=== PATIENT | male | born 1955 | race Caucasian/White ===

== ENCOUNTER 2018-02-25 07:02 | Emergency (ER) | payer SELFPAY ==
[~2018-02-25] VITALS: Ht 170.2 cm; Wt 71.9 kg
[~2018-02-25 07:02] MED LIST: CITA20TA6 PO
[2018-02-25] MEDS ORDERED: FAMOTIDINE 20 MG/2 ML VIAL ONE (07:29)
[2018-02-25] MEDS ORDERED: THIAMINE 200 MG/2 ML VIAL. IV ONE (07:36)
[2018-02-25] MEDS ORDERED: FOLIC ACID 5 MG/ML SYRINGE for ER IV ONE (07:36)
[2018-02-25] MEDS ORDERED: MVI, ADULT NO.4 WITH VIT K 10 ML VIAL IV ONE (07:36)
[2018-02-25 07:41] LABS: BASO # 0.1 x10^3/uL (0.0-0.2); BASO % 1 % (0-3); EOS # 0.1 x10^3/uL (0.0-0.7); EOS % 0 % (0-3); HEMOGLOBIN 16.2 g/dL (13.0-17.5); LYMPH # 1.3 x10^3/uL (1.0-4.8); LYMPH % 10 % (24-48); MEAN CORPUSCULAR HEMOGLOBIN 30 pg (25-35); MEAN CORPUSCULAR HGB CONC 35 g/dL (31-37); MEAN CORPUSCULAR VOLUME 85 fL (79-100); MONO # 0.9 x10^3/uL (0.0-1.1); MONO % 7 % (0-9); NEUT # 11.3 x10^3uL (1.8-7.7); NEUT % 83 % (31-73); PLATELET COUNT 426 x10^3/uL (140-400); RED BLOOD COUNT 5.39 x10^6/uL (4.30-5.70); WHITE BLOOD COUNT 13.7 x10^3/uL (4.0-11.0)
--- NOTE | 2018-02-25 07:44 | PHYS DOC ---
Past History Past Medical History: Anxiety, Hypertension, Other Past Surgical History: Appendectomy, Other Smoking: Cigarettes, Less than 1pk/day Alcohol Use: Heavy Drug Use: Cocaine, Marijuana Adult General Chief Complaint Chief Complaint: WITHDRAWL HPI HPI Patient is a 62-year-old male who presents with complaint of withdrawal symptoms. Patient states that he has been binge drinking for the last 4-5 days and has also been using cocaine. He states the last use of both was yesterday. Patient also indicates that he is having mid abdominal pain that started 2 days ago and has gotten to the point where he was having nausea and vomiting last night. He rates his pain in his abdomen at an 8 out of 10. He denies any radiation of the pain. He denies chest pain or shortness of breath. Patient indicates that he has never had DTs and no seizure history. Review of Systems Review of Systems Constitutional: Denies fever or chills [] Respiratory: Denies cough or shortness of breath [] Cardiovascular: No additional information not addressed in HPI [] GI: Complains of abdominal pain with nausea and vomiting. Denies diarrhea [] Musculoskeletal: Denies back pain or joint pain [] Integument: Denies rash or skin lesions [] All other systems were reviewed and found to be within normal limits, except as documented in this note. Current Medications Current Medications Current Medications Medications (Trade) Dose Ordered Sig/Darinel Start Time Stop Time Status Last Admin Dose Admin Famotidine (Pepcid Vial) 20 mg 1X ONCE 02/25/18 07:30 02/25/18 07:31 UNV Fentanyl Citrate (Fentanyl 2ml Vial) 25 mcg 1X ONCE 02/25/18 07:30 02/25/18 07:31 UNV Folic Acid (Folic Acid) 1 mg 1X ONCE 02/25/18 08:00 02/25/18 08:01 Lorazepam (Ativan) 1 mg 1X ONCE 02/25/18 07:30 02/25/18 07:31 UNV Multivitamins/ Calcium (Thera-M Plus) 1 tab 1X ONCE 02/25/18 08:00 02/25/18 08:01 Multivitamins/ Minerals 10 ml/ Folic Acid 1 mg/ Thiamine HCl 100 mg/Sodium Chloride 1,011.2 ml @ 1,000 mls/ hr Q1H 02/25/18 07:30 UNV Ondansetron HCl (Zofran) 4 mg 1X ONCE 02/25/18 07:30 02/25/18 07:31 UNV Thiamine HCl (Vitamin B-1) 100 mg 1X ONCE 02/25/18 08:00 02/25/18 08:01 Allergies Allergies Allergies Coded Allergies Type Severity Reaction Last Updated Verified No Known Drug Allergies 10/12/13 No Physical Exam Physical Exam Constitutional: Well developed, well nourished, no acute distress, non-toxic appearance. [] HENT: Normocephalic, atraumatic, bilateral external ears normal, oropharynx moist, no oral exudates, nose normal. [] Eyes: PERRLA, EOMI, conjunctiva normal, no discharge. [] Neck: Normal range of motion, no tenderness, supple, no stridor. [] Cardiovascular: Regular rate and rhythm [] Lungs & Thorax: Bilateral breath sounds clear to auscultation [] Abdomen: Bowel sounds normal, soft, with mid abdominal tenderness. [] Skin: Warm, dry, no erythema, no rash. [] Extremities: No tenderness, no cyanosis, no clubbing, ROM intact. [] Neurologic: Alert and oriented X 3. [] Current Patient Data Vital Signs Vital Signs Date Time Temp Pulse Resp B/P (MAP) Pulse Ox O2 Delivery O2 Flow Rate FiO2 02/25/18 07:29 87 19 94 Room Air EKG EKG EKG demonstrates normal sinus rhythm with rate of 82.[] Radiology/Procedures Radiology/Procedures [] Course & Med Decision Making Course & Med Decision Making Pertinent Labs and Imaging studies reviewed. (See chart for details) [] Dragon Disclaimer Dragon Disclaimer This electronic medical record was generated, in whole or in part, using a voice recognition dictation system. Departure Departure: Impression: Primary Impression: Polysubstance abuse Additional Impressions: Polysubstance dependence Gastritis due to alcohol without hemorrhage Disposition: HOME, SELF-CARE Condition: STABLE Referrals: PCP,NO (PCP) Patient Instructions: Alcoholic Gastritis-Brief, Polysubstance Abuse Scripts Famotidine (PEPCID) 20 Mg Tablet 1 TAB PO BID for gastritis, #30 TAB Prov: RABIA SHELDON Jr. DO 02/25/18 Chlordiazepoxide Hcl (CHLORDIAZEPOXIDE HCL) 10 Mg Capsule 10 MG PO TID PRN for ANXIETY / AGITATION, #15 CAP Prov: RABIA SHELDON Jr. DO 02/25/18 Ondansetron Hcl (ZOFRAN) 4 Mg Tablet 1 TAB PO Q8HRS PRN for NAUSEA, #12 TAB Prov: RABIA SHELDON Jr. DO 02/25/18 Problem Qualifiers Additional Impressions: Gastritis due to alcohol without hemorrhage Chronicity: unspecified Qualified Codes: K29.20 - Alcoholic gastritis without bleeding RABIA SHELDON Jr. DO Feb 25, 2018 07:44
[2018-02-25 07:53] LABS: ALBUMIN 3.9 g/dL (3.4-5.0); CALCIUM 8.9 mg/dL (8.5-10.1); CREATININE 1.1 mg/dL (0.7-1.3); DIRECT BILIRUBIN 0.2 mg/dL (0.0-0.2); GFR 68.3; MAGNESIUM 1.6 mg/dL (1.8-2.4); POTASSIUM 3.5 mmol/L (3.5-5.1); TOTAL BILIRUBIN 0.8 mg/dL (0.2-1.0); TOTAL PROTEIN 7.8 g/dL (6.4-8.2)
[2018-02-25] MEDS ORDERED: ONDANSETRON PF 4 MG/2 ML VIAL. IV ONE (08:00)
[2018-02-25] MEDS ORDERED: FOLIC ACID 1 MG TABLET PO ONE (08:00)
[2018-02-25] MEDS ORDERED: LORazepam 2 MG/ML VIAL IV ONE ×2 (08:00→11:45)
[2018-02-25] MEDS ORDERED: THIAMINE 100 MG TABLET. PO ONE (08:00)
[2018-02-25] MEDS ORDERED: FAMOTIDINE 20 MG/2 ML VIAL IVP ONE (08:00)
[2018-02-25] MEDS ORDERED: MULTIVITAMIN with MINERAL TABLET. PO ONE (08:00)
[2018-02-25] MEDS ORDERED: MVI, ADULT NO.4 WITH VIT K 10 ML, FOLIC ACID SYRINGE for ER 1 MG, THIAMINE INJ 100 MG i... IV SCH ×4 (08:00)
[2018-02-25 08:20] LABS: AMPHETAMINE/METHAMPHETAMINE NEG (NEG); BARBITURATES NEG (NEG); BENZODIAZEPINES NEG (NEG); CANNABINOIDS NEG (NEG); COCAINE POS (NEG); METHADONE NEG (NEG); OPIATES NEG (NEG); PHENCYCLIDINE NEG (NEG)
[2018-02-25 08:42] LABS: BACTERIA,URINE 0 /HPF (0-FEW); BILIRUBIN,URINE NEG (NEG); CLARITY,URINE CLEAR; COLOR,URINE YELLOW; GLUCOSE,URINE NEG (NEG); NITRITE,URINE NEG (NEG); RBC,URINE 0 /HPF (0-2); SQUAMOUS EPITHELIAL CELL,UR OCC /LPF; UROBILINOGEN,URINE 0.2 mg/dL (0.2 mg/dL); WBC,URINE 0 /HPF (0-4)
[2018-02-25] MEDS ORDERED: LIDO:MAALOX 1:1 20 ML SINGLE DOSE. PO ONE (11:15)
[2018-02-25] MEDS ORDERED: ONDA4TAB7 PO (13:40)
[2018-02-25] MEDS ORDERED: FAMO-63 PO (13:40)
[2018-02-25] MEDS ORDERED: CHLO10CA5 PO (13:40)
[2018-02-25 13:43] VITALS: BP 150/81
--- NOTE | 2018-02-26 01:34 | EKG ---
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
== END 2018-02-25 13:45 | disposition home or self-care (01) ==
LOC: ER 07:02
DX: K29.20 Alcoholic gastritis without bleeding (principal); F19.20 Other psychoactive substance dependence, uncomplicated; I10 Essential (primary) hypertension; F17.210 Nicotine dependence, cigarettes, uncomplicated; F10.20 Alcohol dependence, uncomplicated; F12.10 Cannabis abuse, uncomplicated; F14.10 Cocaine abuse, uncomplicated; Z90.89 Acquired absence of other organs; Y90.0 Blood alcohol level of less than 20 mg/100 ml
CPT/HCPCS: 36415; 80048; 80076; 80307; 81001; 83690; 83735; 85025; 93005; 96365; 96375; 96376; 99284; G0480; J2060; J2405; J3010; J3490; J7030

== ENCOUNTER 2018-02-26 16:48 | Emergency (ER) | payer SELFPAY ==
[~2018-02-26] VITALS: Ht 170.2 cm; Wt 71.9 kg
[~2018-02-26 16:48] MED LIST changes: +CHLO10CA5 PO; +FAMO-63 PO; +ONDA4TAB7 PO
--- NOTE | 2018-02-26 17:38 | PHYS DOC ---
Past History Past Medical History: Asthma, Other Past Surgical History: Appendectomy, Other Smoking: Cigarettes, Less than 1pk/day Alcohol Use: Heavy Additional Alcohol Information: ETOH was day before last Drug Use: Cocaine Social History Narrative: Last used Cocaine night before last Adult General Chief Complaint Chief Complaint: WITHDRAWL HPI HPI Patient is a 62-year-old male who presents with complaint of continued abdominal pain with nausea and vomiting and anxiety. Patient was seen here couple of days ago with same complaint and was given prescriptions for Librium and Zofran. Patient admits that he did not fill the prescriptions and states that he had a rough night and thought that he should come back to the emergency room. He rates the pain in his abdomen at an 8 out of 10. He denies any fever, chest pain or shortness of breath. Patient states that symptoms are worsened if he tries to eat or drink anything. Review of Systems Review of Systems Constitutional: Denies fever or chills [] Respiratory: Denies cough or shortness of breath [] Cardiovascular: No additional information not addressed in HPI [] GI: Complains of abdominal pain with nausea and vomiting. Denies diarrhea [] Musculoskeletal: Complains of back pain [] All other systems were reviewed and found to be within normal limits, except as documented in this note. Allergies Allergies Allergies Coded Allergies Type Severity Reaction Last Updated Verified No Known Drug Allergies 10/12/13 No Physical Exam Physical Exam Constitutional: Well developed, well nourished, no acute distress, non-toxic appearance. [] HENT: Normocephalic, atraumatic, bilateral external ears normal, oropharynx moist, no oral exudates, nose normal. [] Eyes: PERRLA, EOMI, conjunctiva normal. [] Neck: Normal range of motion, no tenderness, supple, no stridor. [] Cardiovascular: Mildly tachycardic rate with regular rhythm [] Lungs & Thorax: Bilateral breath sounds clear to auscultation [] Abdomen: Bowel sounds normal, soft, with mild diffuse tenderness. [] Skin: Warm, dry, no erythema, no rash. [] Extremities: No tenderness, no cyanosis, no clubbing, ROM intact, no edema. [] Neurologic: Alert and oriented X 3, normal motor function, normal sensory function, no focal deficits noted. [] Current Patient Data Vital Signs Vital Signs Date Time Temp Pulse Resp B/P (MAP) Pulse Ox O2 Delivery O2 Flow Rate FiO2 02/26/18 16:48 97.7 107 20 95 Room Air EKG EKG [] Radiology/Procedures Radiology/Procedures [] Course & Med Decision Making Course & Med Decision Making Pertinent Labs and Imaging studies reviewed. (See chart for details) Patient moved to room upon arrival was evaluated by your medical staff after which workup was initiated to include blood work and a UA. Patient given IV fluids as well as IV Zofran and Pepcid. At this time, workup is pending and patient is being signed out to oncoming ER physician, Dr. King. The patient's labs are unremarkable. His urinalysis is negative for infection. His urine drug screen is significant for cocaine. I suspect that the patient's anxiety is related to his cocaine abuse. He is stable for discharge at this time. Dragon Disclaimer Dragon Disclaimer This electronic medical record was generated, in whole or in part, using a voice recognition dictation system. Departure Departure: Referrals: PCP,NO (PCP) RABIA SHELDON Jr. DO Feb 26, 2018 17:38 DEWAYNE KING DO Feb 26, 2018 20:26
[2018-02-26 17:47] LABS: BASO # 0.1 x10^3/uL (0.0-0.2); BASO % 1 % (0-3); EOS # 0.2 x10^3/uL (0.0-0.7); EOS % 3 % (0-3); HEMATOCRIT 40.1 % (39.0-53.0); LYMPH # 1.6 x10^3/uL (1.0-4.8); LYMPH % 24 % (24-48); MEAN CORPUSCULAR HEMOGLOBIN 31 pg (25-35); MEAN CORPUSCULAR HGB CONC 35 g/dL (31-37); MEAN CORPUSCULAR VOLUME 88 fL (79-100); MONO # 0.5 x10^3/uL (0.0-1.1); MONO % 7 % (0-9); NEUT # 4.5 x10^3uL (1.8-7.7); NEUT % 66 % (31-73); PLATELET COUNT 282 x10^3/uL (140-400); RED BLOOD COUNT 4.57 x10^6/uL (4.30-5.70); RED CELL DISTRIBUTION WIDTH 13.3 % (11.5-14.5); WHITE BLOOD COUNT 6.9 x10^3/uL (4.0-11.0)
[2018-02-26 18:07] LABS: ALBUMIN 2.9 g/dL (3.4-5.0); ALBUMIN/GLOBULIN RATIO 0.9 (1.0-1.7); CALCIUM 8.2 mg/dL (8.5-10.1); CREATININE 1.3 mg/dL (0.7-1.3); GFR 56.3; MAGNESIUM 1.8 mg/dL (1.8-2.4); POTASSIUM 3.3 mmol/L (3.5-5.1); TOTAL BILIRUBIN 0.3 mg/dL (0.2-1.0); TOTAL PROTEIN 6.2 g/dL (6.4-8.2)
[2018-02-26] MEDS: ONDANSETRON PF 4 MG/2 ML VIAL. IV ONE (18:31)
[2018-02-26] MEDS: IV NORMAL SALINE 1,000ML 1,000 ML IV SCH (18:31)
[2018-02-26] MEDS: FAMOTIDINE 20 MG/2 ML VIAL IVP ONE (18:31)
[2018-02-26] MEDS: LORazepam 2 MG/ML VIAL IV ONE (19:17)
[2018-02-26 19:58] LABS: BARBITURATES NEG (NEG); BENZODIAZEPINES POS (NEG); CANNABINOIDS NEG (NEG); COCAINE POS (NEG); METHADONE NEG (NEG); OPIATES NEG (NEG); PHENCYCLIDINE NEG (NEG)
[2018-02-26 20:19] LABS: AMPHETAMINE/METHAMPHETAMINE NEG (NEG)
[2018-02-26 20:21] LABS: BILIRUBIN,URINE NEG (NEG); CLARITY,URINE CLEAR; COLOR,URINE YELLOW; GLUCOSE,URINE NEG (NEG); NITRITE,URINE NEG (NEG); RBC,URINE RARE /HPF (0-2); UROBILINOGEN,URINE 0.2 mg/dL (0.2 mg/dL)
[2018-02-26 20:22] LABS: BACTERIA,URINE 0 /HPF (0-FEW); SQUAMOUS EPITHELIAL CELL,UR OCC /LPF; WBC,URINE OCC /HPF (0-4)
[2018-02-26 20:26] VITALS: BP 131/71
--- NOTE | 2018-03-01 17:43 | EKG ---
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
== END 2018-02-26 20:40 | disposition home or self-care (01) ==
LOC: ER 16:48
DX: R10.817 Generalized abdominal tenderness (principal); R11.2 Nausea with vomiting, unspecified; F41.9 Anxiety disorder, unspecified; F14.10 Cocaine abuse, uncomplicated; J45.909 Unspecified asthma, uncomplicated; F17.210 Nicotine dependence, cigarettes, uncomplicated; F10.20 Alcohol dependence, uncomplicated; Z90.89 Acquired absence of other organs; Y90.0 Blood alcohol level of less than 20 mg/100 ml
CPT/HCPCS: 36415; 80053; 80307; 81001; 83690; 83735; 84484; 85025; 93005; 96361; 96374; 96375; 99284; J2060; J2405; J3490; J7030

== ENCOUNTER 2018-04-04 21:31 | Emergency (ER) | payer OTHER ==
[~2018-04-04] VITALS: Ht 172.7 cm; Wt 79.3 kg
[2018-04-04] MEDS: IV NORMAL SALINE 1,000ML 1,000 ML IV ONE ×2 (21:45→23:15)
[2018-04-04 22:40] LABS: BASO % 1 % (0-3); EOS # 0.3 x10^3/uL (0.0-0.7); EOS % 5 % (0-3); HEMATOCRIT 40.9 % (39.0-53.0); HEMOGLOBIN 14.2 g/dL (13.0-17.5); LYMPH % 15 % (24-48); MEAN CORPUSCULAR HEMOGLOBIN 30 pg (25-35); MEAN CORPUSCULAR HGB CONC 35 g/dL (31-37); MEAN CORPUSCULAR VOLUME 87 fL (79-100); MONO # 0.6 x10^3/uL (0.0-1.1); MONO % 9 % (0-9); NEUT # 4.5 x10^3uL (1.8-7.7); NEUT % 71 % (31-73); PLATELET COUNT 242 x10^3/uL (140-400); RED BLOOD COUNT 4.69 x10^6/uL (4.30-5.70); RED CELL DISTRIBUTION WIDTH 13.8 % (11.5-14.5); WHITE BLOOD COUNT 6.3 x10^3/uL (4.0-11.0)
[2018-04-04 22:55] LABS: ALBUMIN 3.6 g/dL (3.4-5.0); CALCIUM 8.8 mg/dL (8.5-10.1); CREATININE 1.3 mg/dL (0.7-1.3); GFR 56.3; POTASSIUM 3.7 mmol/L (3.5-5.1); TOTAL BILIRUBIN 0.4 mg/dL (0.2-1.0); TOTAL PROTEIN 7.3 g/dL (6.4-8.2)
[2018-04-04 23:21] LABS: BARBITURATES NEG (NEG); BENZODIAZEPINES POS (NEG); CANNABINOIDS NEG (NEG); COCAINE POS (NEG); METHADONE NEG (NEG); OPIATES NEG (NEG); PHENCYCLIDINE NEG (NEG)
[2018-04-04 23:22] LABS: AMPHETAMINE/METHAMPHETAMINE NEG (NEG)
--- NOTE | 2018-04-05 00:01 | ED.ADGEN ---
Past History Past Medical History: Anxiety, Asthma, Other Past Surgical History: Appendectomy, Other Smoking: Cigarettes, Less than 1pk/day Alcohol Use: Occasionally Drug Use: Cocaine Adult General Chief Complaint Chief Complaint syncope HPI HPI 8 years old male presented to the emergency department with a syncope episode witnessed by his friend started from the friend that he was shooting cocaine and felt dizzy right after and he laid down on his friend's patient himself stated that after his experience with drugs he just felt dizzy he denies any syncopal episode is similar to remember everything is back to his baseline he is not weak denies any numbness or weakness in upper extremities and lower extremities no slurred speech no aphasia no vision problem Review of Systems Review of Systems Constitutional: Denies fever or chills [] Eyes: Denies change in visual acuity, redness, or eye pain [] HENT: Denies nasal congestion or sore throat [] Respiratory: Denies cough or shortness of breath [] Cardiovascular: No additional information not addressed in HPI [] GI: Denies abdominal pain, nausea, vomiting, bloody stools or diarrhea [] : Denies dysuria or hematuria [] Musculoskeletal: Denies back pain or joint pain [] Integument: Denies rash or skin lesions [] Neurologic: Denies headache, focal weakness or sensory changes [] Endocrine: Denies polyuria or polydipsia [] All other systems were reviewed and found to be within normal limits, except as documented in this note. Current Medications Current Medications Current Medications Medications (Trade) Dose Ordered Sig/Darinel Start Time Stop Time Status Last Admin Dose Admin Sodium Chloride 1,000 ml @ 1,000 mls/hr 1X ONCE 04/04/18 23:15 04/05/18 00:14 04/04/18 23:15 1,000 MLS/HR Allergies Allergies Allergies Coded Allergies Type Severity Reaction Last Updated Verified No Known Drug Allergies 04/04/18 No Physical Exam Physical Exam Constitutional: Well developed, well nourished, no acute distress, non-toxic appearance. [] HENT: Normocephalic, atraumatic, bilateral external ears normal, oropharynx moist, no oral exudates, nose normal. [] Eyes: PERRLA, EOMI, conjunctiva normal, no discharge. [] Neck: Normal range of motion, no tenderness, supple, no stridor. [] Cardiovascular:Heart rate regular rhythm, no murmur [] Lungs & Thorax: Bilateral breath sounds clear to auscultation [] Abdomen: Bowel sounds normal, soft, no tenderness, no masses, no pulsatile masses. [] Skin: Warm, dry, no erythema, no rash. [] Back: No tenderness, no CVA tenderness. [] Extremities: No tenderness, no cyanosis, no clubbing, ROM intact, no edema. [] Neurologic: Alert and oriented X 3, normal motor function, normal sensory function, no focal deficits noted. [] Psychologic: Affect normal, judgement normal, mood normal. [] Current Patient Data Vital Signs Vital Signs Date Time Temp Pulse Resp B/P (MAP) Pulse Ox O2 Delivery O2 Flow Rate FiO2 04/04/18 21:31 98.0 92 17 96 Room Air Lab Results Laboratory Tests Test 04/04/18 22:20 04/04/18 23:00 White Blood Count 6.3 x10^3/uL (4.0-11.0) Red Blood Count 4.69 x10^6/uL (4.30-5.70) Hemoglobin 14.2 g/dL (13.0-17.5) Hematocrit 40.9 % (39.0-53.0) Mean Corpuscular Volume 87 fL (79-100) Mean Corpuscular Hemoglobin 30 pg (25-35) Mean Corpuscular Hemoglobin Concent 35 g/dL (31-37) Red Cell Distribution Width 13.8 % (11.5-14.5) Platelet Count 242 x10^3/uL (140-400) Neutrophils (%) (Auto) 71 % (31-73) Lymphocytes (%) (Auto) 15 % (24-48) L Monocytes (%) (Auto) 9 % (0-9) Eosinophils (%) (Auto) 5 % (0-3) H Basophils (%) (Auto) 1 % (0-3) Neutrophils # (Auto) 4.5 x10^3uL (1.8-7.7) Lymphocytes # (Auto) 1.0 x10^3/uL (1.0-4.8) Monocytes # (Auto) 0.6 x10^3/uL (0.0-1.1) Eosinophils # (Auto) 0.3 x10^3/uL (0.0-0.7) Basophils # (Auto) 0.0 x10^3/uL (0.0-0.2) Sodium Level 134 mmol/L (136-145) L Potassium Level 3.7 mmol/L (3.5-5.1) Chloride Level 98 mmol/L (98-107) Carbon Dioxide Level 22 mmol/L (21-32) Anion Gap 14 (6-14) Blood Urea Nitrogen 18 mg/dL (8-26) Creatinine 1.3 mg/dL (0.7-1.3) Estimated GFR (Cockcroft-Gault) 56.3 BUN/Creatinine Ratio 14 (6-20) Glucose Level 127 mg/dL (70-99) H Calcium Level 8.8 mg/dL (8.5-10.1) Total Bilirubin 0.4 mg/dL (0.2-1.0) Aspartate Amino Transferase (AST) 14 U/L (15-37) L Alanine Aminotransferase (ALT) 21 U/L (16-63) Alkaline Phosphatase 106 U/L (46-116) Troponin I Quantitative < 0.017 ng/mL (0-0.055) Total Protein 7.3 g/dL (6.4-8.2) Albumin 3.6 g/dL (3.4-5.0) Albumin/Globulin Ratio 1.0 (1.0-1.7) Ethyl Alcohol Level < 10 mg/dL (0-10) Urine Opiates Screen Neg (NEG) Urine Methadone Screen Neg (NEG) Urine Barbiturates Neg (NEG) Urine Phencyclidine Screen Neg (NEG) Urine Amphetamine/Methamphetamine Neg (NEG) Urine Benzodiazepines Screen Pos (NEG) Urine Cocaine Screen Pos (NEG) Urine Cannabinoids Screen Neg (NEG) Urine Ethyl Alcohol Neg (NEG) EKG EKG Normal sinus rhythm no ischemic changes[] Radiology/Procedures Radiology/Procedures [] Course & Med Decision Making Course & Med Decision Making Patient received 2 L fluids in the emergency department remained asymptomatic during his emergency room visit he kept asking for pain medicine and benzodiazepine [] Final Impression Final Impression [] Problems: (1) Drug abuse Dragon Disclaimer Dragon Disclaimer This electronic medical record was generated, in whole or in part, using a voice recognition dictation system. PAO ALAN MD Apr 05, 2018 00:01
[2018-04-05 00:30] VITALS: BP 145/81
--- NOTE | 2018-04-05 02:49 | EKG ---
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
== END 2018-04-05 00:35 | disposition home or self-care (01) ==
LOC: ER 21:31
DX: F14.10 Cocaine abuse, uncomplicated (principal); R42 Dizziness and giddiness; F41.9 Anxiety disorder, unspecified; J45.909 Unspecified asthma, uncomplicated; F17.210 Nicotine dependence, cigarettes, uncomplicated
CPT/HCPCS: 36415; 80053; 80307; 84484; 85025; 93005; 96360; 96361; 99284; G0480; J7030

== ENCOUNTER 2018-05-10 08:17 | Emergency (ER) | payer OTHER ==
[~2018-05-10] VITALS: Ht 172.7 cm; Wt 79.3 kg
[2018-05-10] MEDS ORDERED: IV NORMAL SALINE 1,000ML 1,000 ML IV SCH (08:32)
[2018-05-10] MEDS ORDERED: KETOROLAC 30 MG/ML VIAL. IV ONE (09:00)
[2018-05-10] MEDS ORDERED: ONDANSETRON PF 4 MG/2 ML VIAL. IV ONE (09:00)
[2018-05-10 09:03] LABS: BASO # 0.1 x10^3/uL (0.0-0.2); BASO % 1 % (0-3); EOS # 0.1 x10^3/uL (0.0-0.7); EOS % 2 % (0-3); HEMATOCRIT 45.6 % (39.0-53.0); HEMOGLOBIN 15.6 g/dL (13.0-17.5); LYMPH # 0.9 x10^3/uL (1.0-4.8); LYMPH % 14 % (24-48); MEAN CORPUSCULAR HEMOGLOBIN 30 pg (25-35); MEAN CORPUSCULAR HGB CONC 34 g/dL (31-37); MEAN CORPUSCULAR VOLUME 87 fL (79-100); MONO # 0.3 x10^3/uL (0.0-1.1); MONO % 5 % (0-9); NEUT # 5.1 x10^3uL (1.8-7.7); NEUT % 78 % (31-73); PLATELET COUNT 341 x10^3/uL (140-400); RED BLOOD COUNT 5.21 x10^6/uL (4.30-5.70); RED CELL DISTRIBUTION WIDTH 13.9 % (11.5-14.5); WHITE BLOOD COUNT 6.5 x10^3/uL (4.0-11.0)
[2018-05-10 09:17] LABS: ALBUMIN 3.7 g/dL (3.4-5.0); ALBUMIN/GLOBULIN RATIO 0.9 (1.0-1.7); CALCIUM 9.2 mg/dL (8.5-10.1); CREATININE 1.2 mg/dL (0.7-1.3); GFR 61.8; TOTAL BILIRUBIN 0.3 mg/dL (0.2-1.0); TOTAL PROTEIN 7.6 g/dL (6.4-8.2)
--- NOTE | 2018-05-10 09:27 | RAD ---
PQRS Compliance statement: One or more of the following individualized dose reduction techniques were utilized for this examination: 1. Automated exposure control. 2. Adjustment of the mA and/or kV according to patient size. 3. Use of iterative reconstruction technique. Indication:Severe abdomen pain with nausea and vomiting today TECHNIQUE: CT abdomen and pelvis without IV contrast with multiplanar reformats. COMPARISON: None FINDINGS: Significant motion artifact is seen in the mid abdomen limiting optimal evaluation. Limited evaluation of solid abdominal and pelvic organs due to lack of IV contrast. Heart is normal in size. No pericardial or pleural effusion. Couple of calcified granulomas in the left lower lobe. Noncontrast appearance of the liver, spleen, gallbladder, pancreas, adrenals and kidneys within normal limits. Mild diffuse atherosclerotic disease of the abdominal aorta and bilateral iliac arteries. No free pelvic fluid or ascites. The prostate and seminal vesicles show no large mass. Small bilateral fat-containing inguinal hernia. No enlarged retroperitoneal or pelvic adenopathy. No bowel obstruction. Appendix not visualized. Urinary bladder demonstrates no radiopaque stones. No pneumoperitoneum. No suspicious bony lesion. Most likely a collapsed Schmorl's node in the superior endplate of the L4 vertebral body. IMPRESSION: Limited evaluation of solid abdominal and pelvic organs due to lack of IV contrast. Also motion artifact is seen in the mid abdomen limiting optimal evaluation. 1. No bowel obstruction. 2. No nephrolithiasis or hydronephrosis. Electronically signed by: Rubio Velazquez DO (05/10/2018 9:24 AM) [id number]
[2018-05-10 09:39] LABS: BARBITURATES NEG (NEG); BENZODIAZEPINES NEG (NEG); CANNABINOIDS POS (NEG); COCAINE POS (NEG); METHADONE NEG (NEG); OPIATES POS (NEG); PHENCYCLIDINE NEG (NEG)
[2018-05-10 09:40] LABS: AMPHETAMINE/METHAMPHETAMINE NEG (NEG)
[2018-05-10 09:50] LABS: BACTERIA,URINE 0 /HPF (0-FEW); BILIRUBIN,URINE NEG (NEG); CLARITY,URINE HAZY; COLOR,URINE AMBER; GLUCOSE,URINE NEG (NEG); NITRITE,URINE NEG (NEG); RBC,URINE 0 /HPF (0-2); SQUAMOUS EPITHELIAL CELL,UR OCC /LPF; UROBILINOGEN,URINE 0.2 mg/dL (0.2 mg/dL); WBC,URINE RARE /HPF (0-4)
[2018-05-10 10:23] VITALS: BP 164/90
[2018-05-10] MEDS ORDERED: diphenhydrAMINE 50 MG/ML VIAL IVP ONE (10:30)
[2018-05-10] MEDS ORDERED: RANI150T21 PO (10:34)
[2018-05-10] MEDS ORDERED: ONDA4TAB7 PO (10:34)
--- NOTE | 2018-05-10 10:35 | PHYS DOC ---
Past History Past Medical History: Anxiety, Asthma, Other Past Surgical History: Appendectomy, Other Smoking: Cigarettes, Less than 1pk/day Alcohol Use: Occasionally Drug Use: None Adult General Chief Complaint Chief Complaint: ABDOMINAL PAIN HPI HPI Patient is a 62 year old male who presents with complaining of abdominal pain. Patient complaining of gradual onset of upper abdominal pain since yesterday afternoon as a constant pain without radiation. Patient rated his pain 10 over 10 and states he had nausea without vomiting, diarrhea, urinary symptoms, fever and chills. Patient states he usually has bowel movements every day but did not have any bowel movement for the last 2 days. Patient complaining of anorexia. Patient denies history of the same pain. According to EMR patient had history of polysubstance abuse and admitted to use cocaine yesterday before and after starting his pain. Patient is admitted to use marijuana and states he injected himself with heroine last night. Patient states he drinks alcohol frequently. Patient is agitated and yelling of pain and is a poor historian. Review of Systems Review of Systems Constitutional: Denies fever or chills [] Eyes: Denies change in visual acuity, redness, or eye pain [] HENT: Denies nasal congestion or sore throat [] Respiratory: Denies cough or shortness of breath [] Cardiovascular: No additional information not addressed in HPI [] GI: Reports abdominal pain, nausea, constipation, denies vomiting, bloody stools or diarrhea [] : Denies dysuria or hematuria [] Musculoskeletal: Denies back pain or joint pain [] Integument: Denies rash or skin lesions [] Neurologic: Denies headache, focal weakness or sensory changes [] Endocrine: Denies polyuria or polydipsia [] All other systems were reviewed and found to be within normal limits, except as documented in this note. Current Medications Current Medications Current Medications Medications (Trade) Dose Ordered Sig/Darinel Start Time Stop Time Status Last Admin Dose Admin Diphenhydramine HCl (Benadryl) 50 mg 1X ONCE 05/10/18 10:30 05/10/18 10:31 05/10/18 10:21 50 MG Ketorolac Tromethamine (Toradol 30mg Vial) 30 mg 1X ONCE 05/10/18 09:00 05/10/18 09:01 DC 05/10/18 08:50 30 MG Ondansetron HCl (Zofran) 4 mg 1X ONCE 05/10/18 09:00 05/10/18 09:01 DC 05/10/18 08:49 4 MG Sodium Chloride 1,000 ml @ 1,000 mls/hr Q1H 05/10/18 08:32 05/10/18 09:31 DC 05/10/18 08:49 1,000 MLS/HR Allergies Allergies Allergies Coded Allergies Type Severity Reaction Last Updated Verified No Known Drug Allergies 04/04/18 No Physical Exam Physical Exam Constitutional: Well nourished, moderate distress, non-toxic appearance. [] HENT: Normocephalic, atraumatic,oropharynx moist. Eyes: PERRLA, EOMI, conjunctiva normal, no discharge. [] Neck: Normal range of motion, no tenderness, supple, no stridor. [] Cardiovascular:Heart rate regular rhythm, no murmur [] Lungs & Thorax: Bilateral breath sounds clear to auscultation [] Abdomen: Bowel sounds normal, soft, no tenderness, no masses, no pulsatile masses. [] Skin: Warm, dry, no erythema, warmth. Once. Multiple areas of rash with scratching sign in neck and upper extremity that patient related them to bedbugs infestation at his home. Back: No tenderness, no CVA tenderness. [] Extremities: No tenderness, no cyanosis, no clubbing, ROM intact, no edema. [] Neurologic: Alert and oriented X 3, normal motor function, normal sensory function, no focal deficits noted. [] Psychologic: Affect is very agitated and moving frequently, looks under the influence of drugs. Current Patient Data Vital Signs Vital Signs Date Time Temp Pulse Resp B/P (MAP) Pulse Ox O2 Delivery O2 Flow Rate FiO2 05/10/18 10:23 80 18 164/90 (114) 98 Room Air 05/10/18 08:33 98.4 Lab Results Laboratory Tests Test 05/10/18 08:47 05/10/18 09:15 White Blood Count 6.5 x10^3/uL (4.0-11.0) Red Blood Count 5.21 x10^6/uL (4.30-5.70) Hemoglobin 15.6 g/dL (13.0-17.5) Hematocrit 45.6 % (39.0-53.0) Mean Corpuscular Volume 87 fL (79-100) Mean Corpuscular Hemoglobin 30 pg (25-35) Mean Corpuscular Hemoglobin Concent 34 g/dL (31-37) Red Cell Distribution Width 13.9 % (11.5-14.5) Platelet Count 341 x10^3/uL (140-400) Neutrophils (%) (Auto) 78 % (31-73) H Lymphocytes (%) (Auto) 14 % (24-48) L Monocytes (%) (Auto) 5 % (0-9) Eosinophils (%) (Auto) 2 % (0-3) Basophils (%) (Auto) 1 % (0-3) Neutrophils # (Auto) 5.1 x10^3uL (1.8-7.7) Lymphocytes # (Auto) 0.9 x10^3/uL (1.0-4.8) L Monocytes # (Auto) 0.3 x10^3/uL (0.0-1.1) Eosinophils # (Auto) 0.1 x10^3/uL (0.0-0.7) Basophils # (Auto) 0.1 x10^3/uL (0.0-0.2) Sodium Level 141 mmol/L (136-145) Potassium Level 4.0 mmol/L (3.5-5.1) Chloride Level 104 mmol/L (98-107) Carbon Dioxide Level 24 mmol/L (21-32) Anion Gap 13 (6-14) Blood Urea Nitrogen 7 mg/dL (8-26) L Creatinine 1.2 mg/dL (0.7-1.3) Estimated GFR (Cockcroft-Gault) 61.8 BUN/Creatinine Ratio 6 (6-20) Glucose Level 100 mg/dL (70-99) H Calcium Level 9.2 mg/dL (8.5-10.1) Total Bilirubin 0.3 mg/dL (0.2-1.0) Aspartate Amino Transferase (AST) 22 U/L (15-37) Alanine Aminotransferase (ALT) 32 U/L (16-63) Alkaline Phosphatase 121 U/L (46-116) H Troponin I Quantitative < 0.017 ng/mL (0-0.055) Total Protein 7.6 g/dL (6.4-8.2) Albumin 3.7 g/dL (3.4-5.0) Albumin/Globulin Ratio 0.9 (1.0-1.7) L Lipase 82 U/L (73-393) Ethyl Alcohol Level 23 mg/dL (0-10) H Urine Collection Type Unknown Urine Color Nissa Urine Clarity Hazy Urine pH 5.5 Urine Specific [place] 1.020 Urine Protein Neg (NEG-TRACE) Urine Glucose (UA) Neg mg/dL (NEG) Urine Ketones (Stick) Trace mg/dL (NEG) Urine Blood Neg (NEG) Urine Nitrite Neg (NEG) Urine Bilirubin Neg (NEG) Urine Urobilinogen Dipstick 0.2 mg/dL (0.2 mg/dL) Urine Leukocyte Esterase Neg (NEG) Urine RBC 0 /HPF (0-2) Urine WBC Rare /HPF (0-4) Urine Squamous Epithelial Cells Occ /LPF Urine Bacteria 0 /HPF (0-FEW) Urine Mucus Mod /LPF Urine Opiates Screen Pos (NEG) Urine Methadone Screen Neg (NEG) Urine Barbiturates Neg (NEG) Urine Phencyclidine Screen Neg (NEG) Urine Amphetamine/Methamphetamine Neg (NEG) Urine Benzodiazepines Screen Neg (NEG) Urine Cocaine Screen Pos (NEG) Urine Cannabinoids Screen Pos (NEG) Urine Ethyl Alcohol Pos (NEG) EKG EKG EKG interpreted by me. EKG at 0829 showed normal sinus rhythm at rate of 96, T- wave abnormalities in the high lateral leads, no acute ST and T-wave abnormalities. Radiology/Procedures Radiology/[place] [address] IMAGING REPORT Signed PATIENT: COLUMBA SORENSEN ACCOUNT: [id number] : 1955 LOCATION: ER AGE: 62 SEX: M EXAM STATUS: REG ER ORD. PHYSICIAN: LIZETH FENTON MD REASON: Severe mid abdominal pain, nausea and vomiting today PROCEDURE: CT ABDOMEN PELVIS WO CONTRAST PQRS Compliance statement: One or more of the following individualized dose reduction techniques were utilized for this examination: 1. Automated exposure control. 2. Adjustment of the mA and/or kV according to patient size. 3. Use of iterative reconstruction technique. Indication:Severe abdomen pain with nausea and vomiting today TECHNIQUE: CT abdomen and pelvis without IV contrast with multiplanar reformats. COMPARISON: None FINDINGS: Significant motion artifact is seen in the mid abdomen limiting optimal evaluation. Limited evaluation of solid abdominal and pelvic organs due to lack of IV contrast. Heart is normal in size. No pericardial or pleural effusion. Couple of calcified granulomas in the left lower lobe. Noncontrast appearance of the liver, spleen, gallbladder, pancreas, adrenals and kidneys within normal limits. Mild diffuse atherosclerotic disease of the abdominal aorta and bilateral iliac arteries. No free pelvic fluid or ascites. The prostate and seminal vesicles show no large mass. Small bilateral fat-containing inguinal hernia. No enlarged retroperitoneal or pelvic adenopathy. No bowel obstruction. Appendix not visualized. Urinary bladder demonstrates no radiopaque stones. No pneumoperitoneum. No suspicious bony lesion. Most likely a collapsed Schmorl's node in the superior endplate of the L4 vertebral body. IMPRESSION: Limited evaluation of solid abdominal and pelvic organs due to lack of IV contrast. Also motion artifact is seen in the mid abdomen limiting optimal evaluation. 1. No bowel obstruction. 2. No nephrolithiasis or hydronephrosis. Electronically signed by: Rubio Herring DO (05/10/2018 9:24 AM) [id number] DICTATED AND SIGNED BY: RUBIO HERRING DO DATE: 05/10/18 0920 CC: LIZETH FENTON MD; PCP,NO ~ Course & Med Decision Making Course & Med Decision Making Pertinent Labs and Imaging studies reviewed. (See chart for details) Evaluation of patient in ER showed 62-year-old male patient complaining of severe abdominal pain since last night. Patient was very anxious in ER. Patient treated with IV fluid and Zofran and Protonix. Patient had unremarkable labs and CT except for as a security use for cocaine and opiates and marijuana. Patient informed about lab results and needs to quit using drugs and follow with her primary care physician. Dragon Disclaimer Dragon Disclaimer This electronic medical record was generated, in whole or in part, using a voice recognition dictation system. Departure Departure: Impression: Primary Impression: Constipation Additional Impressions: Polysubstance abuse Anxiety Abdominal pain Tobacco abuse Tobacco abuse counseling Cocaine abuse Alcohol abuse Disposition: HOME, SELF-CARE (at 1040) Condition: IMPROVED Referrals: PCP,SITA (PCP) Patient Instructions: Cocaine Abuse-Brief, Constipation, Adult, Marijuana Abuse -Brief, Opiate Dependence, Smoking Cessation, Tips For Success Additional Instructions: Drink plenty of liquids Follow-up with your primary care physician in 3-5 days Return to ER if not getting better Scripts Ondansetron Hcl (ZOFRAN) 4 Mg Tablet 1 TAB PO Q6HRS for nausea and vomiting, #12 TAB Prov: LIZETH FENTON MD 05/10/18 Ranitidine Hcl (ZANTAC) 150 Mg Tablet 1 TAB PO BID for dyspepcia, #14 TAB 0 Refills Prov: LIZETH FENTON MD 05/10/18 Critical Care Time Critical care time was 70 minutes exclusive of procedures. Problem Qualifiers Primary Impression: Constipation Constipation type: unspecified constipation type Qualified Codes: K59.00 - Constipation, unspecified Additional Impressions: Abdominal pain Abdominal location: unspecified location Qualified Codes: R10.9 - Unspecified abdominal pain LIZETH FENTON MD May 10, 2018 10:34
--- NOTE | 2018-05-10 14:15 | EKG ---
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
== END 2018-05-10 10:50 | disposition home or self-care (01) ==
LOC: ER 08:17
DX: K59.00 Constipation, unspecified (principal); R21 Rash and other nonspecific skin eruption; R11.2 Nausea with vomiting, unspecified; F19.10 Other psychoactive substance abuse, uncomplicated; F17.210 Nicotine dependence, cigarettes, uncomplicated; F41.9 Anxiety disorder, unspecified; J45.909 Unspecified asthma, uncomplicated; F12.10 Cannabis abuse, uncomplicated; F10.10 Alcohol abuse, uncomplicated; Z71.6 Tobacco abuse counseling; Y90.1 Blood alcohol level of 20-39 mg/100 ml
CPT/HCPCS: 36415; 74176; 80053; 80307; 81001; 83690; 84484; 85025; 93005; 96361; 96374; 96375; 99284; G0480; J1200; J1885; J2405; J7030

== ENCOUNTER 2019-06-08 13:11 | Emergency (ER) | payer OTHER ==
[~2019-06-08] VITALS: Ht 172.7 cm; Wt 79.3 kg
[~2019-06-08 13:11] MED LIST changes: +RANI-376 PO
--- NOTE | 2019-06-08 14:02 | PHYS DOC ---
Past History Past Medical History: Anxiety, Asthma, Other Past Surgical History: Appendectomy, Other Smoking: Cigarettes, Less than 1pk/day Alcohol Use: Occasionally Drug Use: None General Adult EDM: Chief Complaint: SHORTNESS OF BREATH HPI: HPI: Patient is a 63-year-old male who presented to ER today for evaluation of chills, cough, sore throat subjective fever for about 5 days. Patient has a history of asthma. Patient also complained of body ache and flulike symptoms. Patient denies any chest pain, no abdominal pain, no nausea vomiting. Patient denied headache. Patient lives alone, he said he WAS not exposed to anybody who had COVID- 19. He denies any recent travel to [place], [place], [place] or any other hot spot locations. Review of Systems: Review of Systems: Constitutional: Positive for fever or chills Eyes: Denies change in visual acuity HENT: Denies nasal congestion or sore throat Respiratory: Positive for cough or shortness of breath Cardiovascular: Denies chest pain or edema GI: Denies abdominal pain, nausea, vomiting, bloody stools or diarrhea : Denies dysuria Musculoskeletal: Denies back pain or joint pain Integument: Denies rash Neurologic: Denies headache, focal weakness or sensory changes Endocrine: Denies polyuria or polydipsia Lymphatic: Denies swollen glands Psychiatric: Denies depression or anxiety Heart Score: Risk Factors: Risk Factors: DM, Current or recent (<one month) smoker, HTN, HLP, family history of CAD, obesity. Risk Scores: Score 0 - 3: 2.5% MACE over next 6 weeks - Discharge Home Score 4 - 6: 20.3% MACE over next 6 weeks - Admit for Clinical Observation Score 7 - 10: 72.7% MACE over next 6 weeks - Early Invasive Strategies Allergies: Allergies: Allergies Coded Allergies Type Severity Reaction Last Updated Verified No Known Drug Allergies 04/04/18 No Physical Exam: PE: Constitutional: Well developed, well nourished, no acute distress, non-toxic appearance. [] HENT: Normocephalic, atraumatic, bilateral external ears normal, oropharynx moist, no oral exudates, nose normal.OROPHARYNGEAL IS ERYTHEMATOUS, NO EXUDATION. Eyes: PERRLA, EOMI, conjunctiva normal, no discharge. [] Neck: Normal range of motion, no tenderness, supple, no stridor. [] Cardiovascular:Heart rate regular rhythm, no murmur [] Lungs & Thorax: Bilateral breath sounds clear to auscultation [] Abdomen: Bowel sounds normal, soft, no tenderness, no masses, no pulsatile masses. [] Skin: Warm, dry, no erythema, no rash. [] Back: No tenderness, no CVA tenderness. [] Extremities: No tenderness, no cyanosis, no clubbing, ROM intact, no edema. [] Neurologic: Alert and oriented X 3, normal motor function, normal sensory function, no focal deficits noted. [] Psychologic: Affect normal, judgement normal, mood normal. [] Current Patient Data: Vital Signs: Vital Signs Date Time Temp Pulse Resp B/P (MAP) Pulse Ox O2 Delivery O2 Flow Rate FiO2 06/08/19 13:44 98.5 107 20 123/87 (99) 97 Room Air EKG: EKG: [] Radiology/Procedures: Radiology/Procedures: [][place] [address] IMAGING REPORT Signed PATIENT: COLUMBA SORENSEN ACCOUNT: [id number] : 1955 LOCATION: ER AGE: 63 SEX: M EXAM STATUS: REG ER ORD. PHYSICIAN: SEPIDEH ORTIZ DO REASON: SOA, COUGH, FEVER FOR 5 DAYS PROCEDURE: CT CHEST WO CONTRAST CT chest without contrast: Reason for examination: Short of breath with cough and fever for 5 days. Comparison is made to previous study dated 06/08/2019. Helical images were obtained through the chest with no contrast administered. Reconstruction was performed in sagittal and coronal planes. Exposure: One or more of the following individualized dose reduction techniques were utilized for this examination: 1. Automated exposure control 2. Adjustment of the mA and/or kV according to patient size 3. Use of iterative reconstruction technique. No abnormality seen at the thyroid gland. The trachea and mainstem bronchi show no intraluminal lesions. No abnormality seen at the esophagus. No significant adenopathy seen in the mediastinum but there are calcified nodes present in the mediastinum and bilaterally in the kate. The thoracic aorta is normal in course and caliber with no aneurysmal dilatation. The heart size is normal with no pericardial effusion seen. There appears to be some discoid atelectasis in the right lower lobe. There is also some linear atelectasis in the left lingula. No other infiltrates or pleural effusions are seen. No pneumothorax is seen. Multiple small calcified granuloma are seen. There is moderate anterior wedge compression deformity at the T6 vertebral body. There is mild anterior wedge compression deformity at the T12 vertebral body. There is a Schmorl's node some compression deformity in the superior endplate of the T8 vertebral body. Posterior elements appear to be intact. No acute rib fractures are seen. No abnormality seen at the visualized portion of the liver, spleen, pancreas or adrenal glands. IMPRESSION: Discoid atelectasis at the right lung base. Linear atelectasis in the lingula. No other infiltrates or pleural effusions are seen. Chronic calcified granulomatous disease. Moderate anterior wedge compression deformity at T6 and mild anterior wedge compression deformity at T12. Schmorl's node in superior endplate of T8. Electronically signed by: Camelia Drew MD (06/08/2019 3:41 PM) [id number] DICTATED AND SIGNED BY: CAMELIA DREW MD DATE: 06/08/19 1541 CC: PCP,NO; SEPIDEH ORTIZ DO ~ Course & Med Decision Making: Course & Med Decision Making Pertinent Labs and Imaging studies reviewed. (See chart for details) Patient is a 63-year-old male who was evaluated in the ER today due to upper respiratory symptoms. Patient had not met criteria to be tested for COVID-19 per the [facility] department. Patient is in stable condition, he will be discharged home and follow-up with his family doctor as needed. Andreas Disclaimer: Andreas Disclaimer: This electronic medical record was generated, in whole or in part, using a voice recognition dictation system. COVID-19 Patient Risks: Age 65 or older: No Sign of co-morbidity: Yes (ASTHMA) Exp to person + for COVID: No Exp to PUI: No Travel from affected area: No Lower respiratory symptoms: Yes Fever: No Other: Yes (sorethroat) PPE Use: Full PPE with N95 mask or PAPR: Yes Departure Departure: Impression: Primary Impression: Acute bronchitis Disposition: HOME, SELF-CARE Condition: STABLE Referrals: PCP,NO (PCP) FOLLOW UP WITH YOUR DOCTOR ON TUESDAY, RETURN IF YOU HAVE FEVER, WORSEN SHORTNESS OF AIR, WORSEN CHEST PAIN. Patient Instructions: Acute Bronchitis Additional Instructions: Thank you for visiting our Emergency Department. We appreciate you trusting us with your care. If any additional problems come up don't hesitate to return to visit us. Please follow up with your primary care provider so they can plan additional care if needed and know about the problem that you had. If symptoms worsen come back to the Emergency Department. Any concerning symptoms that start such as chest pain, shortness of air, weakness or numbness on one side of the body, running high fevers or any other concerning symptoms return to the ER. Scripts Albuterol Sulfate (PROAIR HFA INHALER) 8.5 Gm Hfa.aer.ad 1 PUFF INH PRN Q6HRS PRN for SHORTNESS OF BREATH, #1 INHALER 0 Refills Prov: SEPIDEH ORTIZ DO 06/08/19 Prednisone (PREDNISONE) 20 Mg Tablet 1 TAB PO DAILY for BRONCHITIS, #10 TAB Prov: SEPIDEH ORTIZ DO 06/08/19 Azithromycin (ZITHROMAX) 250 Mg Tablet 1 PKG PO UD for BRONCHITIS, #6 TAB Prov: SEPIDEH ORTIZ DO 06/08/19 SEPIDEH ORTIZ DO Jun 08, 2019 14:02
[2019-06-08 14:08] LABS: HEMATOCRIT 39.2 % (39.0-53.0); HEMOGLOBIN 12.8 g/dL (13.0-17.5); MEAN CORPUSCULAR HEMOGLOBIN 27 pg (25-35); MEAN CORPUSCULAR HGB CONC 33 g/dL (31-37); MEAN CORPUSCULAR VOLUME 83 fL (79-100); PLATELET COUNT 294 x10^3/uL (140-400); RED CELL DISTRIBUTION WIDTH 14.1 % (11.5-14.5); WHITE BLOOD COUNT 5.7 x10^3/uL (4.0-11.0)
--- NOTE | 2019-06-08 14:12 | RAD ---
PORTABLE CHEST 1V History: Cough. Shortness of breath. Comparison: March 15, 2016 Findings: No consolidation or pleural effusion. Normal heart size. No pneumothorax. Prior granulomatous disease within the chest. Hyperinflation. Impression: 1. No acute cardiopulmonary process. Electronically signed by: Conor Riley DO (06/08/2019 2:09 PM) [id number]
[2019-06-08 14:14] LABS: % EOS 2 % (0-5); % LYMPHS 34 % (24-48); % MONOS 8 % (0-10); % SEGS 56 % (35-66); PLT ESTIMATE ADEQUATE (ADEQUATE)
[2019-06-08 14:15] LABS: ANISOCYTOSIS SLIGHT; OVALOCYTES FEW; TEAR DROP CELLS OCC
[2019-06-08 14:42] LABS: CALCIUM 8.7 mg/dL (8.5-10.1); CREATININE 1.4 mg/dL (0.7-1.3); GFR 51.5
[2019-06-08 14:48] LABS: ALBUMIN 3.2 g/dL (3.4-5.0); ALBUMIN/GLOBULIN RATIO 0.8 (1.0-1.7); TOTAL BILIRUBIN 0.4 mg/dL (0.2-1.0)
[2019-06-08 14:50] LABS: INFLUENZA A PATIENT NEGATIVE (NEGATIVE); INFLUENZA B PATIENT NEGATIVE (NEGATIVE)
--- NOTE | 2019-06-08 15:44 | RAD ---
CT chest without contrast: Reason for examination: Short of breath with cough and fever for 5 days. Comparison is made to previous study dated 06/08/2019. Helical images were obtained through the chest with no contrast administered. Reconstruction was performed in sagittal and coronal planes. Exposure: One or more of the following individualized dose reduction techniques were utilized for this examination: 1. Automated exposure control 2. Adjustment of the mA and/or kV according to patient size 3. Use of iterative reconstruction technique. No abnormality seen at the thyroid gland. The trachea and mainstem bronchi show no intraluminal lesions. No abnormality seen at the esophagus. No significant adenopathy seen in the mediastinum but there are calcified nodes present in the mediastinum and bilaterally in the kate. The thoracic aorta is normal in course and caliber with no aneurysmal dilatation. The heart size is normal with no pericardial effusion seen. There appears to be some discoid atelectasis in the right lower lobe. There is also some linear atelectasis in the left lingula. No other infiltrates or pleural effusions are seen. No pneumothorax is seen. Multiple small calcified granuloma are seen. There is moderate anterior wedge compression deformity at the T6 vertebral body. There is mild anterior wedge compression deformity at the T12 vertebral body. There is a Schmorl's node some compression deformity in the superior endplate of the T8 vertebral body. Posterior elements appear to be intact. No acute rib fractures are seen. No abnormality seen at the visualized portion of the liver, spleen, pancreas or adrenal glands. IMPRESSION: Discoid atelectasis at the right lung base. Linear atelectasis in the lingula. No other infiltrates or pleural effusions are seen. Chronic calcified granulomatous disease. Moderate anterior wedge compression deformity at T6 and mild anterior wedge compression deformity at T12. Schmorl's node in superior endplate of T8. Electronically signed by: Camelia Fiore MD (06/08/2019 3:41 PM) [facility]
[2019-06-08 16:26] VITALS: BP 122/67
[2019-06-08] MEDS ORDERED: methylPREDNISolone SOD SUCC PF 125 MG/2 ML VIAL. IV ONE (16:45)
[2019-06-08] MEDS ORDERED: AZITHROMYCIN 250 MG TABLET. PO ONE (16:45)
[2019-06-08 16:48] LABS: BACTERIA,URINE 0 /HPF (0-FEW); BILIRUBIN,URINE NEG (NEG); CLARITY,URINE CLEAR; COLOR,URINE YELLOW; GLUCOSE,URINE NEG (NEG); HYALINE CASTS, URINE FEW /HPF; NITRITE,URINE NEG (NEG); RBC,URINE OCC /HPF (0-2); UROBILINOGEN,URINE 0.2 mg/dL (0.2 mg/dL)
[2019-06-08] MEDS ORDERED: ALBU2.5V8 INH (17:17)
[2019-06-08] MEDS ORDERED: AZIT250T PO (17:17)
[2019-06-08] MEDS ORDERED: PRED20TA PO (17:17)
--- NOTE | 2019-06-08 17:36 | EKG ---
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
== END 2019-06-08 17:35 | disposition home or self-care (01) ==
LOC: ER 13:11
DX: J20.9 Acute bronchitis, unspecified (principal); J45.909 Unspecified asthma, uncomplicated; F17.210 Nicotine dependence, cigarettes, uncomplicated; Z90.89 Acquired absence of other organs
CPT/HCPCS: 36415; 71045; 71250; 80053; 81001; 83605; 83880; 84484; 85007; 85025; 85610; 85730; 87040; 87070; 87205; 87804; 87880; 93005; 96374; 99285; J0456; J2930

== ENCOUNTER 2019-06-13 10:36 | Inpatient (IN) | payer OTHER ==
[~2019-06-13] VITALS: Ht 172.7 cm; Wt 72.2 kg
[~2019-06-13 10:36] MED LIST changes: +ALBU2.5V8 INH; +AZIT250T PO; +PRED20TA PO
[2019-06-13] MEDS ORDERED: IV NORMAL SALINE 1,000ML 1,000 ML IV SCH ×2 (10:54→12:58)
--- NOTE | 2019-06-13 11:24 | PHYS DOC ---
Past History Past Medical History: No Pertinent History Past Surgical History: Appendectomy Smoking: Cigarettes, Less than 1pk/day Alcohol Use: Occasionally Drug Use: None General Adult EDM: Chief Complaint: ABDOMINAL PAIN HPI: HPI: Patient is a 63-year-old male who presents with complaint of abdominal pain and shortness of breath. Patient brought to the emergency department by EMS. Patient was recently seen in the emergency department on June 08, 2019. The patient was evaluated for shortness of breath and cough. Was treated with azithromycin, prednisone, and albuterol. Patient is a very poor historian and is not providing much detail regarding recent emergency department visit or current symptoms. He does point to his abdomen stating that he is having pain. Denies any change in bowel movements. Has not had any fever or chest pain. Has been having cough and shortness of breath. Has not been exposed to any known cases of COVID-19. Patient was found today by local authorities with suspicion for ethanol intoxication. Patient started complaining of abdominal pain at the scene. EMS was notified and brought patient to the emergency department for further evaluation. Review of Systems: Review of Systems: Constitutional: Denies fever or chills Eyes: Denies change in visual acuity HENT: Denies nasal congestion or sore throat Respiratory: Cough, shortness of breath Cardiovascular: Denies chest pain or edema GI: Abdominal pain, denies nausea, vomiting, bloody stools or diarrhea : Denies dysuria Musculoskeletal: Denies back pain or joint pain Integument: Denies rash Neurologic: Denies headache, focal weakness or sensory changes Endocrine: Denies polyuria or polydipsia Lymphatic: Denies swollen glands Heart Score: Risk Factors: Risk Factors: DM, Current or recent (<one month) smoker, HTN, HLP, family history of CAD, obesity. Risk Scores: Score 0 - 3: 2.5% MACE over next 6 weeks - Discharge Home Score 4 - 6: 20.3% MACE over next 6 weeks - Admit for Clinical Observation Score 7 - 10: 72.7% MACE over next 6 weeks - Early Invasive Strategies Current Medications: Current Meds: Current Medications Medications (Trade) Dose Ordered Sig/Darinel Start Time Stop Time Status Last Admin Dose Admin Sodium Chloride 1,000 ml @ 1,000 mls/hr Q1H 06/13/19 10:54 06/13/19 11:53 Allergies: Allergies: Allergies Coded Allergies Type Severity Reaction Last Updated Verified No Known Drug Allergies 04/04/18 No Physical Exam: PE: Constitutional: Alert, afebrile, confused, no acute distress. [] HENT: Normocephalic, atraumatic, bilateral external ears normal, oropharynx moist, no oral exudates, nose normal. [] Eyes: PERRLA, EOMI, conjunctiva normal, no discharge. [] Neck: Normal range of motion, no tenderness, supple, no stridor. [] Cardiovascular: Tachycardia, regular rhythm, no murmur [] Lungs & Thorax: Bilateral breath sounds clear to auscultation [] Abdomen: Bowel sounds normal, soft, diffusely tender in all 4 quadrants, no guarding or rebound tenderness, no masses, no pulsatile masses. [] Skin: Warm, dry, no erythema, no rash. [] Back: No tenderness, no CVA tenderness. [] Extremities: No tenderness, no cyanosis, no clubbing, ROM intact, no edema. [] Neurologic: Alert, disoriented to place, normal motor function, normal sensory function, no focal deficits noted. [] Current Patient Data: Labs: Laboratory Tests Test 06/13/19 11:45 White Blood Count 5.1 x10^3/uL Red Blood Count 4.87 x10^6/uL Hemoglobin 13.4 g/dL Hematocrit 40.7 % Mean Corpuscular Volume 83 fL Mean Corpuscular Hemoglobin 27 pg Mean Corpuscular Hemoglobin Concent 33 g/dL Red Cell Distribution Width 14.5 % Platelet Count 226 x10^3/uL Neutrophils (%) (Auto) 75 % Lymphocytes (%) (Auto) 15 % Monocytes (%) (Auto) 10 % Eosinophils (%) (Auto) 0 % Basophils (%) (Auto) 0 % Neutrophils # (Auto) 3.8 x10^3uL Lymphocytes # (Auto) 0.8 x10^3/uL Monocytes # (Auto) 0.5 x10^3/uL Eosinophils # (Auto) 0.0 x10^3/uL Basophils # (Auto) 0.0 x10^3/uL Sodium Level 135 mmol/L Potassium Level 3.4 mmol/L Chloride Level 99 mmol/L Carbon Dioxide Level 27 mmol/L Anion Gap 9 Blood Urea Nitrogen 18 mg/dL Creatinine 1.7 mg/dL Estimated GFR (Cockcroft-Gault) 41.2 BUN/Creatinine Ratio 11 Glucose Level 125 mg/dL Calcium Level 9.1 mg/dL Total Bilirubin 0.4 mg/dL Aspartate Amino Transf (AST/SGOT) 38 U/L Alanine Aminotransferase (ALT/SGPT) 59 U/L Alkaline Phosphatase 109 U/L Creatine Kinase 46 U/L Creatine Kinase MB (Mass) 0.5 ng/mL Creatine Kinase MB Relative Index 1.1 % Troponin I Quantitative < 0.017 ng/mL Total Protein 7.4 g/dL Albumin 3.2 g/dL Albumin/Globulin Ratio 0.8 Lipase 95 U/L Ethyl Alcohol Level < 10 mg/dL Current Medications Medications (Trade) Dose Ordered Sig/Darinel Route PRN Reason Start Time Stop Time Status Last Admin Dose Admin Sodium Chloride 1,000 ml @ 1,000 mls/hr Q1H IV 06/13/19 10:54 06/13/19 11:53 DC 06/13/19 10:54 Sodium Chloride 2,040 ml @ 2,040 mls/hr Q1H IV 06/13/19 12:16 06/13/19 12:26 DC Ceftriaxone Sodium 1 gm/ Sodium Chloride 50 ml @ 100 mls/hr 1X ONCE IV 06/13/19 12:30 06/13/19 12:59 Azithromycin 500 mg/Sodium Chloride 250 ml @ 250 mls/hr 1X ONCE IV 06/13/19 12:30 06/13/19 13:29 Sodium Chloride 1,040 ml @ 2,040 mls/hr Q31M IV 06/13/19 12:30 Vital Signs: Vital Signs Date Time Temp Pulse Resp B/P (MAP) Pulse Ox O2 Delivery O2 Flow Rate FiO2 06/13/19 10:53 98.2 117 20 128/93 (105) 99 EKG: EKG: Interpreted by nm: Heart rate 115, sinus tachycardia, normal intervals, normal axis, no acute ST/T wave abnormalities present [] Radiology/Procedures: Radiology/Procedures: 3 view acute abdominal x-ray series interpreted by Dr. Karthik Oliva MD, radiologist: 1. Mild hazy or interstitial right lung infiltrates. 2. Mild worsening compared to the CT. 3. No bowel obstruction or acute finding in the abdomen. [] Course & Med Decision Making: Course & Med Decision Making Pertinent Labs and Imaging studies reviewed. (See chart for details) Patient noted to be tachycardia on arrival. On chart review, the patient was seen on June 08, 2019 for treatment of respiratory symptoms. Influenza and strep testing were negative at that time. The patient's chest x-ray today shows worsening opacities bilaterally compared to previous chest x-ray. Differential diagnosis includes community-acquired bacterial pneumonia, however I do have suspicion that the patient's symptoms could be due to COVID-19. Given the patient's confusion at this time, I am concerned that the patient is developing severe illness and will need admission to the hospital for further evaluation and treatment. Patient started on a 30 mL/kg bolus of IV fluids per sepsis protocol. Started on azithromycin and Rocephin IV. A COVID-19 screening swab was ordered and collected in the emergency department prior to admission. Results pending at time of disposition. I spoke with Dr. Suresh who accepted care of patient in hospital for further care. Critical CARE time excluding procedures: 55 minutes [] Dragon Disclaimer: Dragon Disclaimer: This electronic medical record was generated, in whole or in part, using a voice recognition dictation system. COVID-19 Patient Risks: Age 65 or older: No Sign of co-morbidity: Yes Exp to person + for COVID: No Exp to PUI: No Travel from affected area: No Lower respiratory symptoms: Yes Fever: No Other: No PPE Use: Full PPE with N95 mask or PAPR: Yes Departure Departure: Impression: Primary Impression: Community acquired pneumonia Qualified Codes: J18.9 - Pneumonia, unspecified organism Additional Impressions: Suspected COVID-19 virus infection Metabolic encephalopathy Severe sepsis Acute renal insufficiency Disposition: ADMITTED INPATIENT Admitting Physician: Josiane Suresh Condition: STABLE Referrals: PCP,NO (PCP) MUSTAPHA SKAGGS MD Jun 13, 2019 11:24
[2019-06-13 12:10] LABS: BASO % 0 % (0-3); EOS % 0 % (0-3); HEMATOCRIT 40.7 % (39.0-53.0); HEMOGLOBIN 13.4 g/dL (13.0-17.5); LYMPH # 0.8 x10^3/uL (1.0-4.8); LYMPH % 15 % (24-48); MEAN CORPUSCULAR HEMOGLOBIN 27 pg (25-35); MEAN CORPUSCULAR HGB CONC 33 g/dL (31-37); MEAN CORPUSCULAR VOLUME 83 fL (79-100); MONO # 0.5 x10^3/uL (0.0-1.1); MONO % 10 % (0-9); NEUT # 3.8 x10^3uL (1.8-7.7); NEUT % 75 % (31-73); PLATELET COUNT 226 x10^3/uL (140-400); RED BLOOD COUNT 4.87 x10^6/uL (4.30-5.70); RED CELL DISTRIBUTION WIDTH 14.5 % (11.5-14.5); WHITE BLOOD COUNT 5.1 x10^3/uL (4.0-11.0)
[2019-06-13] MEDS ORDERED: IV NORMAL SALINE 1,000ML 2,040 ML IV SCH (12:16)
[2019-06-13 12:22] LABS: CALCIUM 9.1 mg/dL (8.5-10.1); CREATININE 1.7 mg/dL (0.7-1.3); GFR 41.2; POTASSIUM 3.4 mmol/L (3.5-5.1)
[2019-06-13] MEDS ORDERED: AZITHROMYCIN 500 MG in IV NORMAL SALINE 250ML 250 ML IV ONE (12:30)
[2019-06-13] MEDS ORDERED: NORMAL SALINE IV SCH (12:30)
[2019-06-13 12:38] LABS: ALBUMIN 3.2 g/dL (3.4-5.0); ALBUMIN/GLOBULIN RATIO 0.8 (1.0-1.7); TOTAL BILIRUBIN 0.4 mg/dL (0.2-1.0); TOTAL PROTEIN 7.4 g/dL (6.4-8.2)
[2019-06-13] MEDS ORDERED: AZITHROMYCIN 500 MG VIAL. IV ONE (12:51)
[2019-06-13] MEDS ORDERED: IV NORMAL SALINE 250ML 250 ML ONE (12:51)
[2019-06-13] MEDS ORDERED: IV NORMAL SALINE 50ML 50 ML ONE ×2 (12:51→12:54)
[2019-06-13] MEDS ORDERED: cefTRIAXone SODIUM 1 GM VIAL ONE ×2 (12:51→12:54)
[2019-06-13 13:15] LABS: BACTERIA,URINE 0 /HPF (0-FEW); BILIRUBIN,URINE NEG (NEG); CLARITY,URINE CLOUDY; COLOR,URINE AMBER; GLUCOSE,URINE NEG (NEG); NITRITE,URINE NEG (NEG); SQUAMOUS EPITHELIAL CELL,UR FEW /LPF
--- NOTE | 2019-06-13 15:10 | RAD ---
Three-view acute abdominal series. HISTORY: Abdominal pain, cough 3 views were taken for an acute abdominal series. There is no bowel obstruction. Bowel pattern is unremarkable. There are no abnormal calcifications. There is no free air on the upright view of the abdomen or abnormal air-fluid levels. There are mild groundglass infiltrates in the right lung base and in the right upper lobe just above the fissure which have mildly worsened since the recent CT. Heart is normal in size. IMPRESSION: 1. Mild hazy or interstitial right lung infiltrates. 2. Mild worsening compared to the CT. 3. No bowel obstruction or acute finding in the abdomen. Electronically signed by: Karthik Oliva MD (06/13/2019 12:08 PM) [id number]
[2019-06-13 15:56] VITALS: BP 142/91
[2019-06-13] MEDS ORDERED: QUET200T PO (17:25)
[2019-06-13] MEDS ORDERED: GABA300C8 PO (17:25)
[2019-06-13] MEDS ORDERED: CLOP75TA PO (17:25)
[2019-06-13] MEDS ORDERED: ATOR40TA59 PO (17:25)
[2019-06-13] MEDS ORDERED: CLON0.5T4 PO (17:25)
[2019-06-13] MEDS ORDERED: IPRA12.9 IN (17:25)
[2019-06-13] MEDS ORDERED: NITR0.4T22 SL (17:25)
[2019-06-13] MEDS ORDERED: FLUO40CA2 PO (17:26)
[2019-06-13] MEDS ORDERED: METO25TA4 PO (17:26)
[2019-06-13] MEDS ORDERED: POTASSIUM CHLORIDE 20 MEQ TABLET.ER. PO ONE (18:00)
--- NOTE | 2019-06-13 18:06 | HP ---
ADMIT DATE: 06/13/2019 HISTORY OF PRESENT ILLNESS: The patient is a 63-year-old male patient and an extremely poor historian, who was brought to the Emergency Room with a complaint of abdominal pain and shortness of breath. He was brought to the Emergency Department by EMS. He was recently seen in the Emergency Department on 06/08/2019 and at that time, he was evaluated for shortness of breath and cough, was treated with azithromycin, prednisone and albuterol. He is apparently homeless and he does point to his abdomen stating that he is having pain. He did also have a diarrhea about twice a day. Denied any fever, chills or rigors. Denied any nausea or vomiting. He denied any cough, phlegm or hemoptysis. He has not been exposed to any known case of COVID-19. The patient was found by localities with suspicion that he might have ethanol intoxication; however, he was complaining of abdominal pain at the scene. The [facility] were notified and they brought him to the Emergency Department for further evaluation. His lab work showed that his white cell count was normal. His chemistry showed that he has lactic acidosis; however, his liver enzymes are all normal as well as his lipase was normal. Toxic screen was negative, showed blood alcohol level less than 10. Urinalysis was essentially unremarkable. His acute abdomen series, which basically showed that there is mild hazy interstitial right lung infiltrate, mild worsening compared to CT scan. No bowel obstruction or acute finding in the abdomen. The patient apparently was given that he has hypoxia, shortness of breath and a suspicion of COVID-19 infection and he was basically swabbed. He was started on IV azithromycin, Rocephin, was admitted to the ICU for further evaluation and treatment. PAST MEDICAL HISTORY: Unremarkable. The patient is an extremely poor historian. PAST SURGICAL HISTORY: Also unobtainable. FAMILY HISTORY: He has 2 brothers, both younger and healthy. His father and mother both in their 90s. SOCIAL HISTORY: He said he is . He has 1 son and 1 daughter. He quit smoking about 5-6 years ago. He does not drink alcohol. 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 I do not know how reliable this statement is. ALLERGIES: He has no known drug allergies. PHYSICAL EXAMINATION: GENERAL: When I saw him this afternoon, he was resting slightly propped up in bed, in no apparent respiratory distress. There was no pallor, jaundice, cyanosis or thyromegaly. No jugular venous distention. No lower limb edema. VITAL SIGNS: His heart rate was 108, blood pressure was 142/91, temperature was 100.3, respiratory rate 20, and oxygen saturation was 98% on 2 liters of oxygen. HEAD, EYES, EARS, NOSE AND THROAT: Showed normocephalic, atraumatic. NECK: Supple. HEART: Showed normal first and second heart sounds. No gallop or murmur. CHEST: Shows central trachea, equally reduced expansion, reduced air entry, bilateral scattered rhonchi. I could not appreciate any crepitation. ABDOMEN: Distended with diffuse tenderness. No guarding or rigidity. No organomegaly. All hernial orifice intact. Bowel sounds normal. NEUROLOGIC: He was awake, alert, but very confused and does not really give any useful information; however, all his cranial nerves are intact. EXTREMITIES: He moves extremities without difficulty. LABORATORY DATA: His lab work on arrival showed a white cell count 5100, hemoglobin 13.4, hematocrit 40.7, MCV 83 and platelet count 226,000 with a manual differential showed 75% polymorphs, 15% lymphocytes and 10% monocytes. His chemistry showed a serum sodium 135, potassium 3.4, chloride 99, bicarbonate 27, anion gap of 9, BUN 18, creatinine 1.7, estimated GFR was 41 mL per minute. His glucose was 125. Lactic acid was 2.4, calcium was 9.1. Total bilirubin, AST, ALT, alkaline phosphatase were normal. Total protein was 7.4, albumin was 3.2. Serum lipase was 95. His first set of troponin was less than 0.017. ASSESSMENT AND PLAN: The patient was basically admitted with community-acquired pneumonia and possible COVID-19 viral infection, metabolic encephalopathy and acute on chronic renal insufficiency. He did receive a liter of normal saline and ceftriaxone 1 gram IV in the Emergency Room and also azithromycin 500 mg IV once. My plan is to arrange for him to have a CT scan of the chest, abdomen and pelvis without contrast and we will repeat all his lab work again tomorrow and decide the further management accordingly. JORDON TAPIA MD DR: KENNETH/johny JOB#: [id number] / [id number]
--- NOTE | 2019-06-13 18:20 | EKG ---
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 Electronically Signed On 06-14-2019 8:45:51 CDT by Lucas Pate
--- NOTE | 2019-06-13 19:15 | RAD ---
STUDY: 1. CT chest without contrast 2. CT abdomen/pelvis without contrast INDICATION: Shortness of breath. Abdominal pain. COMPARISON: CT chest 06/08/2019. CT abdomen/pelvis 05/10/2018. TECHNIQUE: Helical CT of the chest, abdomen and pelvis performed without the use of intravenous contrast. Coronal and sagittal reformats were obtained. One or more of the following individualized dose reduction techniques were utilized for this examination: 1. Automated exposure control 2. Adjustment of the mA and/or kV according to patient size 3. Use of iterative reconstruction technique. FINDINGS: CHEST: Unchanged aortic caliber. LAD stent. Sequela of a remote granulomatous process. No interval enlargement of mediastinal or hilar lymph nodes. Motion degraded assessment of the lungs. Discoid atelectasis again seen at the right more so than left lung bases. Development of ill-defined groundglass opacities scattered throughout both lungs some of which are centrally distributed well others are subpleural in location. All lung lobes are involved but there is greatest involvement of the right upper lobe. No pneumothorax or pleural effusion. Unchanged axilla. Unchanged thyroid. No newly seen osseous abnormality with redemonstration of multifocal degenerative changes and several thoracic superior endplate compression deformities. ABDOMEN/PELVIS: Inherently limited study due to the absence of intravenous or oral contrast. The study is degraded by motion artifact as well. No focal hepatic parenchymal abnormality. No CT findings that would suggest acute cholecystitis. No calcified gallstones. No biliary dilatation. No peripancreatic inflammatory changes. The spleen is within normal limits for size. Normal adrenal gland morphology. Unchanged configuration of the kidneys. No hydroureteronephrosis. Unremarkable urinary bladder. Unchanged prostate. Fluid within the proximal portion of the colon suggesting a diarrheal state. The more distal colon is collapsed. Increased density foci along the dependent portion of the proximal colon favored dense stool or radiodense ingested material. The appendix is not well visualized but there are no inflammatory changes at its expected location. A few small bowel loops are borderline dilated but there is no transition point to suggest obstruction. No pneumatosis or perforation. No acute abnormality of the stomach. Multifocal calcific atherosclerosis to include the abdominal aorta and iliofemoral system. No aneurysmal dilatation. A few mildly prominent upper abdominal lymph nodes such as a precaval lymph node on image 65 series 2 measure no different in size from the comparison. No free fluid or air. Bilateral left slightly larger than right fat-containing inguinal hernias without complicating features. Unchanged peripherally sclerotic focus within the left iliac bone without aggressive features and favored a benign fibro-osseous lesion. Unchanged superior endplate compression deformity at L2. IMPRESSION: CHEST: 1. Worsened appearance of the chest from 06/08/2019 with development of multifocal groundglass opacities throughout both lungs but with a predilection for the right upper lobe. Though nonspecific, the appearance is concerning for an atypical viral pneumonia. 2. Chronic findings as above. ABDOMEN/PELVIS: 1. Fluid within the proximal aspect of the colon suggestive of a diarrheal state. There is borderline dilatation of scattered loops of small bowel but without findings of obstruction. The constellation of findings raises the question of a mild ileus. 2. Unchanged chronic findings as above. FOR INTERNAL CODING PURPOSES RESULT CODE: (C) The results of the study were discussed with the care team by Dr. Pulliam via telephone on 06/13/2019 at 1905 hours. Electronically signed by: ANTONIA PULLIAM MD (06/13/2019 7:12 PM) [id number]
[2019-06-13] MEDS: ACETAMINOPHEN 325 MG TABLET PO PRN (19:54)
[2019-06-13] MEDS: ONDANSETRON PF 4 MG/2 ML VIAL. IVP PRN (19:55)
[2019-06-13 20:26] VITALS: BP 131/96
[2019-06-13] MEDS ORDERED: NITROGLYCERIN SUBLINGUAL 0.4 MG BOTTLE OF 25. SL PRN (20:30)
[2019-06-13] MEDS ORDERED: LORA-254 PO (20:30)
[2019-06-13] MEDS ORDERED: ALBUTEROL SULFATE 2.5 MG/3 ML NEBU. INH PRN (20:30)
[2019-06-13] MEDS ORDERED: NON FORMULARY ITEM (Ipratropium Bromide (Atrovent Hfa) 2 PUFF) IN PRN (20:30)
[2019-06-13 20:53] VITALS: BP 103/60
[2019-06-13] MEDS ORDERED: IPRATROPIUM/ALBUTEROL 20/100mcg/INH INHALER. INH PRN (21:00)
[2019-06-13] MEDS ORDERED: HYDROXYCHLOROQUINE 200 MG TABLET PO SCH (21:00)
[2019-06-13] MEDS: GABAPENTIN 300 MG CAPSULE. PO SCH (21:11)
[2019-06-13] MEDS: ATORVASTATIN CALCIUM 20 MG TABLET PO SCH (21:11)
[2019-06-13] MEDS: QUEtiapine 100 MG TABLET. PO SCH (21:11)
[2019-06-13] MEDS: METOPROLOL TART IMMED RELEASE 25 MG TABLET PO SCH (21:11)
[2019-06-13] MEDS: clonazePAM 0.5 MG TABLET PO PRN (21:12)
[2019-06-13] MEDS: HYDROXYCHLOROQUINE (PROGRAM) 200 MG TABLET PO SCH (21:12)
[2019-06-13 22:00] VITALS: BP 89/51
[2019-06-13 23:00] VITALS: BP 80/41
[2019-06-14] VITALS (31 sets, daily range): BP systolic 63–133; BP diastolic 37–76
[2019-06-14] MEDS ORDERED: NOREPINEPHRINE BITARTRATE 8 MG in IV DEXTROSE 5% 250 ML IV PRN (01:45)
[2019-06-14] MEDS ORDERED: NOREPINEPHRINE BITARTRATE 4 MG/4 ML VIAL. IV ONE (01:51)
[2019-06-14] MEDS: clonazePAM 0.5 MG TABLET PO PRN ×2 (08:54→20:42)
[2019-06-14] MEDS: AZITHROMYCIN 250 MG TABLET. PO SCH (08:54)
[2019-06-14] MEDS: METOPROLOL TART IMMED RELEASE 25 MG TABLET PO SCH ×2 (08:54→20:42)
[2019-06-14] MEDS: CLOPIDOGREL BISULFATE 75 MG TABLET PO SCH (08:54)
[2019-06-14] MEDS: predniSONE 20 MG TABLET PO SCH (08:54)
[2019-06-14] MEDS: HYDROXYCHLOROQUINE (PROGRAM) 200 MG TABLET PO SCH ×2 (08:54→20:42)
[2019-06-14] MEDS: GABAPENTIN 300 MG CAPSULE. PO SCH ×2 (08:54→20:42)
[2019-06-14] MEDS: FLUoxetine HCL 20 MG CAPSULE PO SCH (08:56)
[2019-06-14] MEDS: ONDANSETRON PF 4 MG/2 ML VIAL. IVP PRN (12:15)
[2019-06-14] MEDS: ACETAMINOPHEN 325 MG TABLET PO PRN (12:15)
[2019-06-14] MEDS: IV NORMAL SALINE 1,000ML 1,000 ML IV SCH (14:45)
[2019-06-14 15:08] LABS: BASO % 0 % (0-3); EOS % 0 % (0-3); HEMATOCRIT 35.7 % (39.0-53.0); LYMPH # 0.3 x10^3/uL (1.0-4.8); LYMPH % 10 % (24-48); MEAN CORPUSCULAR HEMOGLOBIN 27 pg (25-35); MEAN CORPUSCULAR HGB CONC 34 g/dL (31-37); MEAN CORPUSCULAR VOLUME 82 fL (79-100); MONO # 0.1 x10^3/uL (0.0-1.1); MONO % 6 % (0-9); NEUT # 2.2 x10^3uL (1.8-7.7); NEUT % 83 % (31-73); PLATELET COUNT 215 x10^3/uL (140-400); RED BLOOD COUNT 4.38 x10^6/uL (4.30-5.70); RED CELL DISTRIBUTION WIDTH 14.6 % (11.5-14.5); WHITE BLOOD COUNT 2.6 x10^3/uL (4.0-11.0)
[2019-06-14 15:25] LABS: ALBUMIN 2.8 g/dL (3.4-5.0); ALBUMIN/GLOBULIN RATIO 0.7 (1.0-1.7); CREATININE 1.1 mg/dL (0.7-1.3); GFR 68.1; POTASSIUM 4.1 mmol/L (3.5-5.1); TOTAL BILIRUBIN 0.2 mg/dL (0.2-1.0); TOTAL PROTEIN 6.7 g/dL (6.4-8.2)
--- NOTE | 2019-06-14 15:25 | PN ---
DATE: SUBJECTIVE: The patient is resting slightly propped up in bed, in no apparent distress. He is complaining of severe headache, also sore throat and dry mouth, and also abdominal pain, although less so than yesterday. He also had cough, which mostly seemed to be productive. PHYSICAL EXAMINATION: GENERAL: When I examined him, there was no pallor, jaundice, cyanosis or thyromegaly. No jugular venous distention. No lower limb edema. VITAL SIGNS: His heart rate was 72, blood pressure was 122/49, temperature was 98.4, respiratory rate was 16, and oxygen saturation was 98% on 2 liters of oxygen. HEAD, EYES, EARS, NOSE AND THROAT: Showed normocephalic, atraumatic. NECK: Supple. HEART: Showed normal first and second heart sounds. No gallop or murmur. CHEST: Shows central trachea, equal bilateral expansion and air entry. Very few scattered rhonchi anteriorly. I could not appreciate any crepitation. ABDOMEN: Distended, soft with mild diffuse tenderness. No guarding or rigidity. No organomegaly. All hernial orifices intact. Bowel sounds normal. NEUROLOGIC: He is awake, alert, responding appropriately. All cranial nerves are intact. He moves extremities without difficulty. His intake over the last 24 hours was incompletely recorded. LABORATORY DATA: Today's labs are still pending at the time of this dictation. His COVID-19 is positive. ASSESSMENT: 1. Community-acquired pneumonia due to COVID-19 viral infection. 2. Metabolic encephalopathy. 3. Acute on chronic renal insufficiency. PLAN: As he has difficulty with IV access, we will arrange for him to have a PICC line. We will continue with hydroxychloroquine 200 mg twice a day. Continue with azithromycin 250 mg daily. We will continue also with Levophed as needed. JORDON TAPIA MD DR: KENNETH/johny JOB#: [id number] / [id number]
[2019-06-14] MEDS: HYDROcodone/APAP 10/325 1 TAB TABLET PO PRN (16:03)
[2019-06-14 16:05] LABS: % BANDS 3 % (0-9); % BASOS 1 % (0-3); % LYMPHS 7 % (24-48); % MONOS 4 % (0-10); % SEGS 85 % (35-66)
[2019-06-14 16:06] LABS: PLT ESTIMATE ADEQUATE (ADEQUATE)
[2019-06-14] MEDS: QUEtiapine 100 MG TABLET. PO SCH (20:42)
[2019-06-14] MEDS: ATORVASTATIN CALCIUM 20 MG TABLET PO SCH (20:42)
[2019-06-14] MEDS ORDERED: HYDROXYCHLOROQUINE 200 MG TABLET PO SCH (21:00)
[2019-06-15] VITALS (10 sets, daily range): BP systolic 86–132; BP diastolic 45–73
[2019-06-15] MEDS: IV NORMAL SALINE 1,000ML 1,000 ML IV SCH ×3 (04:30→20:45)
[2019-06-15 05:06] LABS: HEMATOCRIT 35.7 % (39.0-53.0); HEMOGLOBIN 11.9 g/dL (13.0-17.5); RED BLOOD COUNT 4.31 x10^6/uL (4.30-5.70); RED CELL DISTRIBUTION WIDTH 14.3 % (11.5-14.5); WHITE BLOOD COUNT 3.3 x10^3/uL (4.0-11.0)
[2019-06-15 05:33] LABS: ALBUMIN 2.7 g/dL (3.4-5.0); ALBUMIN/GLOBULIN RATIO 0.7 (1.0-1.7); CALCIUM 7.7 mg/dL (8.5-10.1); POTASSIUM 4.4 mmol/L (3.5-5.1); TOTAL BILIRUBIN 0.2 mg/dL (0.2-1.0); TOTAL PROTEIN 6.8 g/dL (6.4-8.2)
[2019-06-15] MEDS: METOPROLOL TART IMMED RELEASE 25 MG TABLET PO SCH ×2 (09:00→21:00)
[2019-06-15] MEDS: CLOPIDOGREL BISULFATE 75 MG TABLET PO SCH (11:08)
[2019-06-15] MEDS: clonazePAM 0.5 MG TABLET PO PRN (11:08)
[2019-06-15] MEDS: AZITHROMYCIN 250 MG TABLET. PO SCH (11:08)
[2019-06-15] MEDS: predniSONE 20 MG TABLET PO SCH (11:08)
[2019-06-15] MEDS: HYDROXYCHLOROQUINE (PROGRAM) 200 MG TABLET PO SCH ×2 (11:08→21:06)
[2019-06-15] MEDS: GABAPENTIN 300 MG CAPSULE. PO SCH ×2 (11:09→21:06)
[2019-06-15] MEDS: FLUoxetine HCL 20 MG CAPSULE PO SCH (11:14)
[2019-06-15] MEDS ORDERED: ACETAMINOPHEN 325 MG TABLET PO ONE (17:26)
[2019-06-15] MEDS: ACETAMINOPHEN 325 MG TABLET PO PRN (18:00)
--- NOTE | 2019-06-15 19:45 | PN ---
DATE: 06/15/2019 SUBJECTIVE: The patient is resting, slightly propped up in bed, in no apparent distress. He continued to complain of headache and some chest pressure. Has also cough that seems to be productive. However, he is afebrile and he continued to be somewhat confused and he pulled his PICC line. PHYSICAL EXAMINATION: GENERAL: When I examined him, he looked pale, but no jaundice, cyanosis or thyromegaly. No jugular venous distention. No limb edema. VITAL SIGNS: His heart rate was 84, blood pressure was 132/59, temperature 97.6, respiratory rate was 16, and oxygen saturation was 97% on 2 liters of oxygen. HEAD, EYES, EARS, NOSE AND THROAT: Showed normocephalic, atraumatic. NECK: Supple. CARDIAC: Normal first and second heart sounds. No gallop or murmur. CHEST: Shows central trachea, equal bilateral expansion, air entry, vesicular sounds with very few scattered rhonchi, could not appreciate any crepitation. ABDOMEN: Distended, soft, nontender. NEUROLOGIC: He is somewhat confused, but without any obvious lateralizing sign. He is able to move his extremities and able to stand and walk around in his room. His intake was 650, output was 500. LABORATORY DATA: His lab work this morning showed a white cell count of 3300, hemoglobin 11.9, hematocrit 35.7, MCV 83 and platelet count 213,000. His chemistry showed a serum sodium 138, potassium 4.4, chloride 105, bicarbonate 26, anion gap of 7, BUN 12, creatinine 1, estimated GFR was 76 mL per minute. His glucose was 103 and lactic acid was 1.5, calcium was 7.7. Total bilirubin, AST, ALT, alkaline phosphatase were normal. Total protein 6.8, albumin was 2.7. ASSESSMENT: 1. Community-acquired pneumonia due to COVID-19 viral infection. 2. Metabolic encephalopathy. 3. Acute on chronic renal insufficiency that apparently has improved. His creatinine came down from 1.7 to 1 4. Hypokalemia, resolved. PLAN: To continue with hydroxychloroquine as well as Zithromax as per protocol. Continue with inhalers. Continue with all other medication. We will monitor the patient closely and he remained stable with oxygen that is within normal range on room air. We might consider discharging him home tomorrow. JORDON TAPIA MD DR: Esteban JOB#: [id number] / [id number]
[2019-06-15] MEDS: QUEtiapine 100 MG TABLET. PO SCH (21:07)
[2019-06-15] MEDS: ATORVASTATIN CALCIUM 20 MG TABLET PO SCH (21:07)
[2019-06-16] VITALS (7 sets, daily range): BP systolic 93–130; BP diastolic 53–91
[2019-06-16] MEDS: HYDROcodone/APAP 10/325 1 TAB TABLET PO PRN (05:39)
[2019-06-16] MEDS: IV NORMAL SALINE 1,000ML 1,000 ML IV SCH ×2 (06:45→15:10)
[2019-06-16] MEDS: HYDROXYCHLOROQUINE (PROGRAM) 200 MG TABLET PO SCH ×2 (08:21→20:07)
[2019-06-16] MEDS: CLOPIDOGREL BISULFATE 75 MG TABLET PO SCH (08:21)
[2019-06-16] MEDS: AZITHROMYCIN 250 MG TABLET. PO SCH (08:21)
[2019-06-16] MEDS: predniSONE 20 MG TABLET PO SCH (08:22)
[2019-06-16] MEDS: GABAPENTIN 300 MG CAPSULE. PO SCH ×2 (08:22→20:07)
[2019-06-16] MEDS: FLUoxetine HCL 20 MG CAPSULE PO SCH (08:34)
[2019-06-16] MEDS: METOPROLOL TART IMMED RELEASE 25 MG TABLET PO SCH ×2 (08:34→20:08)
[2019-06-16 12:45] LABS: HEMATOCRIT 37.1 % (39.0-53.0); HEMOGLOBIN 12.3 g/dL (13.0-17.5); RED BLOOD COUNT 4.5 x10^6/uL (4.30-5.70); RED CELL DISTRIBUTION WIDTH 14.6 % (11.5-14.5); WHITE BLOOD COUNT 5.2 x10^3/uL (4.0-11.0)
[2019-06-16 12:54] LABS: ALBUMIN 2.9 g/dL (3.4-5.0); ALBUMIN/GLOBULIN RATIO 0.7 (1.0-1.7); CALCIUM 8.2 mg/dL (8.5-10.1); CREATININE 0.9 mg/dL (0.7-1.3); GFR 85.8; POTASSIUM 4.3 mmol/L (3.5-5.1); TOTAL BILIRUBIN 0.2 mg/dL (0.2-1.0); TOTAL PROTEIN 7.1 g/dL (6.4-8.2)
--- NOTE | 2019-06-16 13:20 | PN ---
DATE: 06/16/2019 SUBJECTIVE: The patient is resting, slightly propped up in bed, in no apparent respiratory distress. Awake, alert and responding somewhat better than before. He denied any complaint except some chest pressure, has had no more headache today. PHYSICAL EXAMINATION: GENERAL: When I examined him, he looked well and was clearly in no apparent respiratory distress, pale, but no jaundice, cyanosis or thyromegaly. No jugular venous distention. No limb edema. VITAL SIGNS: His heart rate was 87, blood pressure was 121/76, temperature was 99.2, respiratory rate was 17 and oxygen saturation was 90 on room air, his oxygen saturation has been ranging from 89-95%. HEAD, EYES, EARS, NOSE AND THROAT: Showed normocephalic, atraumatic. NECK: Supple. HEART: Showed normal first and second heart sounds. No gallop or murmur. CHEST: Clear to auscultation. No crepitation or rhonchi. ABDOMEN: Distended, soft, nontender. No guarding or rigidity. No organomegaly. Bowel sounds are normal. NEUROLOGIC: He is awake, alert, responding appropriately. All cranial nerves are intact. He moves extremities without difficulty. His intake over the last 24 hours was 1790, output was 550. LABORATORY DATA: As of yesterday, his white cell count was 3300, hemoglobin 11.9, hematocrit 37.7, MCV 83 and platelet count 213,000. His chemistry showed a serum sodium 138, potassium 4.4, chloride 105, bicarbonate 26, anion gap of 7, BUN 12, creatinine 1, estimated GFR was 76 mL per minute, his glucose 105, calcium was 7.7. Total bilirubin, AST, ALT, alkaline phosphatase were normal. Total protein 6.8, albumin 2.7. ASSESSMENT: 1. Community-acquired pneumonia due to COVID-19 viral infection. 2. Metabolic encephalopathy. 3. Acute on chronic renal insufficiency that apparently has improved. His creatinine is down from 1.7 to 1. 4. Hypokalemia, resolved. PLAN: To continue with hydroxychloroquine and Zithromax as per protocol. Continue with inhalers and other medication. We have repeated his labs this morning and depends on the finding, we might be able to discharge him home today. JORDON TAPIA MD DR: KENNETH/johny JOB#: [id number] / [id number]
[2019-06-16] MEDS ORDERED: ANTI-COAG MONITOR BY PHARMACY. MC PRN (18:15)
[2019-06-16] MEDS ORDERED: CONTRAST GIVEN MC PRN (18:30)
[2019-06-16] MEDS ORDERED: IOHEXOL 350 MG/ML 100 ML VIAL. IV ONE (18:30)
[2019-06-16] MEDS: ENOXAPARIN ** NOTE DOSE ** SYRINGE SQ SCH (20:06)
[2019-06-16] MEDS: QUEtiapine 100 MG TABLET. PO SCH (20:07)
[2019-06-16] MEDS: ATORVASTATIN CALCIUM 20 MG TABLET PO SCH (20:07)
--- NOTE | 2019-06-16 20:11 | RAD ---
Exam: CT of chest, abdomen and pelvis with contrast INDICATION: Chest abdomen pain TECHNIQUE: Sequential axial images through the chest, abdomen and pelvis obtained following the administration of 100 mL of Omni 350 IV contrast. Sagittal and coronal reformatted images were reconstructed from the axial data and reviewed. 3-D reformatted images were reconstructed from the axial data and reviewed. Comparisons: 06/13/2019 FINDINGS: Thyroid is unremarkable. No enlarged mediastinal lymph nodes. Heart size is normal. No pericardial effusion. Thoracic aorta has a normal course and caliber. Pulmonary artery is not enlarged. No pulmonary embolus identified within the main, lobar or segmental pulmonary arteries. Airways are patent. Redemonstration of patchy areas of groundglass opacity overall similar when compared to the prior study. No suspicious lung nodules. No pleural effusion or thickening. Liver, spleen, pancreas, gallbladder and adrenals are unremarkable. Kidneys demonstrate symmetric enhancement. No perinephric inflammation or hydronephrosis. No renal or ureteral calculi are identified. Bladder is distended and appears thin-walled. Prostate is not enlarged. Large and small bowel are unremarkable. Appendix is not identified. No free intra-abdominal air or fluid. No obstruction. Abdominal aorta has a normal course and caliber. Abdominal vasculature is patent. No enlarged abdominal lymph nodes are identified. No suspicious osseous lesions or acute fractures. IMPRESSION: 1. Sternotomy ring similar appearance of patchy groundglass opacity within the lungs bilaterally. Differential remains unchanged and includes atypical/viral pneumonia. 2. No acute process identified in the abdomen or pelvis. Exposure: One or more of the following in the visualized dose reduction techniques were utilized for this examination: 1. Automated exposure control 2. Adjustment of the MA and/or KV according to patient size 3. Use of iterative of reconstructive technique Electronically signed by: Rodrick Feng MD (06/16/2019 8:08 PM) [id number]
[2019-06-17 00:01] VITALS: BP 101/52
[2019-06-17] MEDS: IV NORMAL SALINE 1,000ML 1,000 ML IV SCH ×3 (02:45→22:45)
[2019-06-17 04:13] VITALS: BP 114/63
[2019-06-17 08:00] VITALS: BP 120/72
[2019-06-17] MEDS: BENZOCAINE/MENTHOL LOZNGE 18'S BOX. PO PRN ×2 (08:00→20:31)
[2019-06-17] MEDS: CLOPIDOGREL BISULFATE 75 MG TABLET PO SCH (08:30)
[2019-06-17] MEDS: predniSONE 20 MG TABLET PO SCH (08:30)
[2019-06-17] MEDS: METOPROLOL TART IMMED RELEASE 25 MG TABLET PO SCH ×2 (08:30→20:24)
[2019-06-17] MEDS: AZITHROMYCIN 250 MG TABLET. PO SCH (08:30)
[2019-06-17] MEDS: HYDROXYCHLOROQUINE (PROGRAM) 200 MG TABLET PO SCH ×2 (08:30→20:24)
[2019-06-17] MEDS: GABAPENTIN 300 MG CAPSULE. PO SCH ×2 (08:30→20:25)
[2019-06-17] MEDS: FLUoxetine HCL 20 MG CAPSULE PO SCH (08:30)
[2019-06-17] MEDS: ENOXAPARIN ** NOTE DOSE ** SYRINGE SQ SCH (08:30)
[2019-06-17 12:00] VITALS: BP_SYST 129; BP_DIAS 30; BP_DIAS 63
--- NOTE | 2019-06-17 13:47 | PN ---
DATE: 06/17/2019 SUBJECTIVE: The patient is resting, slightly propped up in bed, no apparent distress. He was sleepy, but arousable. On questioning, he continued to complain of chest pain, shortness of breath, cough seemed to be moist. We did repeat a CT scan of the chest, abdomen and pelvis yesterday that showed the heart size is normal, no pericardial effusion. The thoracic aorta has a normal course and caliber. Pulmonary artery is not enlarged. No pulmonary embolus identified within the main lobar and segmental pulmonary arteries. Airways are patent. There is demonstration of patchy areas of ground glass opacity overall similar when compared to prior study. No suspicious lung nodules. No pleural effusion or thickening. Liver, spleen, pancreas, gallbladder and adrenals are unremarkable. Kidneys demonstrate symmetric enhancement. No perinephric inflammatory hydronephrosis, no renal or ureteral calculi identified. Bladder is distended and appears thin walled. Prostate is not enlarged. Large and small bowel is unremarkable. Appendix not identified. No free intra-abdominal air or fluid, no obstruction. Abdominal aorta has normal course and caliber. Abdominal vasculature is patent. No enlarged lymph nodes identified. No suspicious osseous or acute fracture. PHYSICAL EXAMINATION: GENERAL: When I examined him this afternoon, he looked pale, but no jaundice, cyanosis or thyromegaly. No jugular venous distention. No lower limb edema. VITAL SIGNS: His heart rate was 88, blood pressure 114/63, temperature was 98, respiratory rate was 18 and oxygen saturation was 94% on 2 liters of oxygen. HEAD, EYES, EARS, NOSE AND THROAT: Showed normocephalic, atraumatic. NECK: Supple. HEART: Showed normal first and second heart sounds. No gallop or murmur. CHEST: Shows central trachea, equally reduced expansion, reduced air entry, vesicular sounds, very few scattered rhonchi. I could not appreciate any crepitation. ABDOMEN: Distended, soft with mild diffuse tenderness mostly in the epigastric area. No guarding or rigidity. No organomegaly. All hernial orifices intact. Bowel sounds normal. NEUROLOGIC: He was sleepy, but arousable. All cranial nerves are intact. He moves extremities without difficulty. His intake and output were incompletely recorded. LABORATORY DATA: His white cell count as of yesterday was 5200, hemoglobin 12, hematocrit 37, MCV 82 and platelet count 255,000. His chemistry showed a serum sodium 137, potassium 4.3, chloride 103, bicarbonate 26, anion gap of 8, BUN 11, creatinine 0.9, estimated GFR was 86 mL per minute. His glucose 105, calcium was 8.2. Total bilirubin, AST, ALT, alkaline phosphatase were normal. Total protein 7.1, albumin was 2.9. ASSESSMENT: 1. Community-acquired pneumonia due to COVID-19 viral infection. 2. Metabolic encephalopathy. 3. Acute on chronic kidney injury that has improved. His creatinine came down from 1.7 to 1. 4. Hypokalemia, resolved. PLAN: To continue with hydroxychloroquine. Continue with Zithromax as the protocol. Continue with DVT prophylaxis. Continue with pain management. I will repeat all his labs tomorrow and if he remained stable, we might be able to discharge him home with perhaps home oxygen. JORDON TAPIA MD DR: KENNETH/johny JOB#: [id number] / [id number]
[2019-06-17] MEDS: HYDROcodone/APAP 10/325 1 TAB TABLET PO PRN (18:00)
[2019-06-17] MEDS: clonazePAM 0.5 MG TABLET PO PRN (20:24)
[2019-06-17] MEDS: ATORVASTATIN CALCIUM 20 MG TABLET PO SCH (20:25)
[2019-06-17] MEDS: QUEtiapine 100 MG TABLET. PO SCH (20:25)
[2019-06-17 20:42] VITALS: BP 107/77
[2019-06-18 00:43] VITALS: BP 103/57
[2019-06-18 04:00] VITALS: BP 122/62
[2019-06-18] MEDS: ACETAMINOPHEN 325 MG TABLET PO PRN (06:00)
[2019-06-18 06:08] VITALS: BP 119/95
[2019-06-18] MEDS: METOPROLOL TART IMMED RELEASE 25 MG TABLET PO SCH (08:40)
[2019-06-18] MEDS: CLOPIDOGREL BISULFATE 75 MG TABLET PO SCH (08:41)
[2019-06-18] MEDS: FLUoxetine HCL 20 MG CAPSULE PO SCH (08:41)
[2019-06-18] MEDS: predniSONE 20 MG TABLET PO SCH (08:41)
[2019-06-18] MEDS: HYDROXYCHLOROQUINE (PROGRAM) 200 MG TABLET PO SCH (08:41)
[2019-06-18] MEDS: GABAPENTIN 300 MG CAPSULE. PO SCH (08:43)
[2019-06-18] MEDS: IV NORMAL SALINE 1,000ML 1,000 ML IV SCH (08:45)
[2019-06-18] MEDS ORDERED: ENOXAPARIN 40 MG/0.4 ML SYRINGE. SQ SCH (09:00)
[2019-06-18 12:00] VITALS: BP 94/63
[2019-06-18 16:00] VITALS: BP 111/64
--- NOTE | 2019-06-18 16:08 | DS ---
DATE OF DISCHARGE: 06/18/2019 HOSPITAL COURSE: The patient is a 63-year-old male patient who was admitted to the Emergency Room with complaint of abdominal pain and shortness of breath, who was seen in the Emergency Department on 06/08/2019. At that time, he was evaluated for shortness of breath and cough, was treated with azithromycin, prednisone and albuterol. He apparently is homeless and he pointed to his abdomen. He also had some diarrhea about twice a day. Denied any fever or chills, has not been exposed to any known case of COVID-19. He was brought to the Emergency Room with a suspicion that he might have ethanol intoxication. However, the EMS were notified and they brought him to the Emergency Room for further evaluation. His lab work showed that the white cell count was normal. His chemistry showed the lactic acidosis; however, all his liver enzymes were normal. His lipase was normal. Toxic screen was negative and showed blood alcohol less than 10. Urinalysis essentially unremarkable. His acute abdomen series basically showed there is mild hazy interstitial right lung infiltrate with mild worsening compared to CT scan. No bowel obstruction or acute finding. The patient was hypoxic and short of breath and suspicion for COVID-19 was high; therefore, he was swabbed and was started on IV azithromycin and Rocephin as well as hydroxychloroquine, was admitted to ICU for further evaluation. Ultimately, his COVID-19 test came back positive. He completed his course of treatment with Rocephin and Zithromax and also hydroxychloroquine. He remained stable. He is now maintaining his oxygen saturation at 95% on room air and has had no more headache, no shortness of breath. No cough, no abdominal pain. PHYSICAL EXAMINATION: GENERAL: When I saw him today, he looked well and was clearly in no apparent respiratory distress. No pallor, jaundice, cyanosis or thyromegaly. No jugular venous distention. No limb edema. VITAL SIGNS: His heart rate was 95, blood pressure 119/95, temperature 97.9, respiratory rate 12 and oxygen saturation was 96% on 2 liters of oxygen. HEAD, EYES, EARS, NOSE AND THROAT: Showed normocephalic, atraumatic. NECK: Supple. HEART: Showed normal first and second heart sounds. No gallop, rub or murmur. CHEST: Clear to auscultation. No crepitation or rhonchi. ABDOMEN: Distended, soft, nontender. NEUROLOGICAL: He is sleepy, but arousable. All cranial nerves intact. EXTREMITIES: He moves extremities without difficulty. LABORATORY DATA: His most recent lab work showed a white cell count is up to 5200, hemoglobin 12, hematocrit 37, MCV 82 and platelet count 255,000. His chemistry showed a serum sodium 137, potassium 4.3, chloride 103, bicarbonate 26, anion gap of 8, BUN 11, creatinine 0.9, estimated GFR was 86 mL per minute, his glucose 105, calcium was 8.2. Total bilirubin, AST, ALT, alkaline phosphatase were normal. Total protein was 7.1, albumin was 2.9. His D-dimer was 0.38. Urinalysis was essentially unremarkable and toxic screen showed blood alcohol to be less than 10. His COVID-19 by PCR was positive. DISCHARGE MEDICATIONS: The patient will be discharged home to continue on his albuterol sulfate for ProAir 1 puff every 4-6 hours, atorvastatin calcium 40 mg at bedtime, clonazepam 0.5 mg twice a day, Plavix 75 mg once a day, fluoxetine 40 mg once a day, gabapentin 300 mg p.o. b.i.d., ipratropium bromide 2 puffs every 4 hours, lorazepam 2 mg every 2 hours p.r.n. for anxiety and agitation, metoprolol tartrate 25 mg twice a day, nitroglycerin 0.4 mg sublingually as needed, prednisone 20 mg daily, quetiapine fumarate 200 mg at bedtime. FINAL DISCHARGE DIAGNOSES: 1. Community-acquired pneumonia due to COVID-19 viral infection. 2. Metabolic encephalopathy. 3. Acute on chronic kidney injury that has improved. His creatinine came down from 1.7 to 0.9. 4. Hypokalemia, resolved; hyperlipidemia; coronary artery disease; hypertension, depression and anxiety. JORDON TAPIA MD DR: KENNETH/johny JOB#: [id number] / [id number]
== END 2019-06-18 17:25 | disposition home or self-care (01) | DRG 871 ==
LOC: ER 10:36 → ICU 12:47
PROVIDERS: ADMIT Internal Medicine; ATTEND Internal Medicine
PROC: 02HV33Z Insertion of Infusion Device into Superior Vena Cava, Percutaneous Approach (ICD-10-PCS; principal; 2019-06-14)
PROC: B548ZZA Ultrasonography of Superior Vena Cava, Guidance (ICD-10-PCS; 2019-06-14)
DX: A41.89 Other specified sepsis (principal); U07.1 COVID-19; G93.41 Metabolic encephalopathy; J12.89 Other viral pneumonia; N17.9 Acute kidney failure, unspecified; R65.20 Severe sepsis without septic shock; E78.5 Hyperlipidemia, unspecified; E87.6 Hypokalemia; I12.9 Hypertensive chronic kidney disease with stage 1 through stage 4 chronic kidney disease, or unspecified chronic kidney disease; I25.10 Atherosclerotic heart disease of native coronary artery without angina pectoris; N18.9 Chronic kidney disease, unspecified; Z59.0 Homelessness; Z87.891 Personal history of nicotine dependence; Z90.49 Acquired absence of other specified parts of digestive tract; F32.9 Major depressive disorder, single episode, unspecified; F41.9 Anxiety disorder, unspecified; Z79.899 Other long term (current) drug therapy
CPT/HCPCS: 36415; 36569; 71250; 71275; 74022; 74176; 74177; 80053; 81001; 82553; 83605; 83615; 83690; 84484; 85007; 85025; 85027; 85379; 87040; 87635; 93005; 96361; 96365; 96368; G0480; J0456; J0696; J1650; J2405; J7050; J7512; Q9967; 99285-25; J7030

== ENCOUNTER 2019-06-18 20:32 | Emergency (ER) | payer OTHER ==
[~2019-06-18] VITALS: Ht 172.7 cm; Wt 72.2 kg
[~2019-06-18 20:32] MED LIST changes: +ATOR40TA59 PO; +CLON0.5T4 PO; +CLOP75TA PO; +FLUO40CA2 PO; +GABA300C8 PO; +IPRA12.9 IN; +LORA-254 PO; +METO25TA4 PO; +NITR0.4T22 SL; +QUET200T PO
--- NOTE | 2019-06-18 21:01 | PHYS DOC ---
Past History Past Medical History: No Pertinent History Past Surgical History: Appendectomy Smoking: Cigarettes, Less than 1pk/day Alcohol Use: Occasionally Drug Use: None General Adult EDM: Chief Complaint: CHEST PAIN HPI: HPI: ".. I ve been having chest discomfort .. and shortness of breath.. since I was discharged today...." Patient is a 63 year old male who presents with above hx and complaints of chest discomfort since discharge today. Patient was admitted on 06/13 2019 for complaints of abdomen pain and shortness of breath. Patient underwent a cardiac evaluation while in hospital. Pt. reported has + test for Covid 19 on 06/12. Patient in no apparent current respiratory distress. Does have a dry non- productive cough. Pt. localizes his chest pain to sternum and it can be reproduced with palpation and cough. Patient is currently maintaining his oxygen sats above 96% on room air. Reviewed discharge records from . Pt. advised he has continued to smoke. Review of Systems: Review of Systems: Constitutional: Denies fever or chills Eyes: Denies change in visual acuity HENT: Denies nasal congestion or sore throat Respiratory: Complants of cough and shortness of breath Cardiovascular: Complaints of chest pain GI: Denies abdominal pain, nausea, vomiting, bloody stools or diarrhea : Denies dysuria Musculoskeletal: Denies back pain or joint pain Integument: Denies rash Neurologic: Denies headache, focal weakness or sensory changes Endocrine: Denies polyuria or polydipsia Lymphatic: Denies swollen glands Psychiatric: Denies depression or anxiety Heart Score: HEART Score for Chest Pain: HEART Score for Chest Pain Response (Comments) Value History Slighlty/Non-Suspicious 0 ECG Nonspecific Repolarizatio 1 Age >45 - < 65 1 Risk Factors 1 or 2 Risk Factors 1 Troponin < Normal Limit 0 Total 3 Risk Factors: Risk Factors: DM, Current or recent (<one month) smoker, HTN, HLP, family history of CAD, obesity. Risk Scores: Score 0 - 3: 2.5% MACE over next 6 weeks - Discharge Home Score 4 - 6: 20.3% MACE over next 6 weeks - Admit for Clinical Observation Score 7 - 10: 72.7% MACE over next 6 weeks - Early Invasive Strategies Family History: Family History: Noncontributory to presentation-has brothers who are healthy his father and mother in their 90s. Current Medications: Current Meds: See nursing for home meds-discharge meds Allergies: Allergies: Allergies Coded Allergies Type Severity Reaction Last Updated Verified No Known Drug Allergies 04/04/18 No Physical Exam: PE: Constitutional: Patient reports acute distress, non-toxic appearance. [] HENT: Normocephalic, atraumatic, bilateral external ears normal, oropharynx moist, minimal postnasal drainage, no oral exudates, nose slightly swollen turbinates with clear rhinorrhea. Poor dentition Eyes: PERRLA, EOMI, conjunctiva normal, no discharge. [] Neck: Normal range of motion, no tenderness, supple, no stridor. [] Cardiovascular:Heart rate regular rhythm, no murmur. The [monitor shows] a sinus rhythm in the 90s Lungs & Thorax: Bilateral breath sounds equal at apex with scattered wheezes on auscultation []. Localizes his chest pain and sternal area which is reproducible on palpation Abdomen: Bowel sounds normal, soft, no tenderness, no masses, no pulsatile masses. [] Skin: Warm, dry, no erythema, no rash. Poor turgor. Back: No tenderness, no CVA tenderness. [] Extremities: No tenderness, no cyanosis, no clubbing, ROM intact, no edema. Arthritic changes. No appreciable cording in legs. DTRs are +2 patellar and brachial. Patient is ambulatory without problems. Neurologic: Alert and oriented X 3, moves all extremities on request, does have distal sensory, no focal deficits noted. [] Psychologic: Affect anxious l, judgement somewhat a poor historian, mood normal. [] EKG: EKG: My interpretation of EKG shows a sinus tachycardia at 111 bpm. Does have some nonspecific contour abnormalities. No findings of acute STEMI with contralateral changes. [] EKG time 2109 minutes My interpretation of second EKG shows a sinus rhythm at 98 bpm. No findings of acute STEMI with contralateral changes. No significant changes from prior EKG on arrival to the emergency department. EKG time is over 145 hours Radiology/Procedures: Radiology/Procedures: [][address] [address] IMAGING REPORT Signed PATIENT: COLUMBA SORENSEN ACCOUNT: [id number] : 1955 LOCATION: ER AGE: 63 SEX: M EXAM STATUS: REG ER ORD. PHYSICIAN: ALICIA SCOTT MD REASON: cp, +COVID PROCEDURE: PORTABLE CHEST 1V PORTABLE CHEST 1V 06/18/2019 9:01 PM INDICATION: Chest pain, COVID positive COMPARISON: None available TECHNIQUE: Portable frontal view of the chest is provided. FINDINGS: The cardiomediastinal silhouette is within normal limits. Faint tree-in-bud nodular airspace disease noted in the right lower lobe which may represent infectious/inflammatory pneumonitis. There are no significant pleural effusions. There is no pulmonary vascular congestion. No pneumothorax. No suspicious osseous abnormality. IMPRESSION: Faint tree-in-bud nodular airspace disease noted in the right lower lobe which may represent infectious/inflammatory pneumonitis. Electronically signed by: Corry White MD (06/18/2019 9:53 PM) [facility] DICTATED AND SIGNED BY: CORRY WHITE MD DATE: 06/18/192152 CC: ALICIA SCOTT MD; PCP,NO ~ Course & Med Decision Making: Course & Med Decision Making Pertinent Labs and Imaging studies reviewed. (See chart for details) Patient monitored throughout his ED stay. Patient during stay reported no episodes of chest pain. Did maintain saturations throughout his ED stay on room air. Patient with majority of the time in the emergency department was asleep except when awaken for exams. Impression: 1. Dyspnea 2. Chest Discomfot 3. Viral Syndrome Covid 19+ on 06/13/2019 4. Hx. Acute on Chronic Kidney Injury 5. Tobacco abuse 6. History of depression 7. History of anxiety 8. History of hypertension 9. History of coronary artery disease 10. History of alcohol abuse 11. Social Issues- Homeless hx.- Poor Social Support - High risk for re-admit and ED evaluations, [] Dragon Disclaimer: Dragon Disclaimer: This electronic medical record was generated, in whole or in part, using a voice recognition dictation system. Departure Departure: Disposition: HOME/RESIDENCE PRIOR TO ADM Condition: STABLE Referrals: PCP,NO (PCP) Andreas Disclaimer This chart was dictated in whole or in part using Voice Recognition software in a busy, high-work load, and often noisy Emergency Department environment. It may contain unintended and wholly unrecognized errors or omissions. Dragon Disclaimer This chart was dictated in whole or in part using Voice Recognition software in a busy, high-work load, and often noisy Emergency Department environment. It may contain unintended and wholly unrecognized errors or omissions. ALICIA SCOTT MD Jun 18, 2019 21:01
[2019-06-18] MEDS ORDERED: IV RINGERS SOLUTION,LACTATED 1,000 ML IV SCH (21:30)
[2019-06-18] MEDS ORDERED: ASPIRIN CHEWABLE 81 MG TABLET. PO ONE (21:30)
[2019-06-18 21:55] VITALS: BP 124/75
--- NOTE | 2019-06-18 21:55 | RAD ---
PORTABLE CHEST 1V 06/18/2019 9:01 PM INDICATION: Chest pain, COVID positive COMPARISON: None available TECHNIQUE: Portable frontal view of the chest is provided. FINDINGS: The cardiomediastinal silhouette is within normal limits. Faint tree-in-bud nodular airspace disease noted in the right lower lobe which may represent infectious/inflammatory pneumonitis. There are no significant pleural effusions. There is no pulmonary vascular congestion. No pneumothorax. No suspicious osseous abnormality. IMPRESSION: Faint tree-in-bud nodular airspace disease noted in the right lower lobe which may represent infectious/inflammatory pneumonitis. Electronically signed by: Smita White MD (06/18/2019 9:53 PM) [facility]
[2019-06-18 22:27] LABS: BASO % 0 % (0-3); EOS % 0 % (0-3); HEMATOCRIT 44.1 % (39.0-53.0); HEMOGLOBIN 14.3 g/dL (13.0-17.5); LYMPH % 13 % (24-48); MEAN CORPUSCULAR HEMOGLOBIN 27 pg (25-35); MEAN CORPUSCULAR HGB CONC 33 g/dL (31-37); MEAN CORPUSCULAR VOLUME 84 fL (79-100); MONO # 0.4 x10^3/uL (0.0-1.1); MONO % 5 % (0-9); NEUT % 82 % (31-73); PLATELET COUNT 363 x10^3/uL (140-400); RED BLOOD COUNT 5.26 x10^6/uL (4.30-5.70); RED CELL DISTRIBUTION WIDTH 14.7 % (11.5-14.5); WHITE BLOOD COUNT 7.4 x10^3/uL (4.0-11.0)
[2019-06-18] MEDS ORDERED: IPRATRPIUM/ALBUTEROL 0.5/2.5MG 3 ML NEBU. ONE (23:24)
--- NOTE | 2019-06-18 23:48 | EKG ---
[address] [address] Test Date: 2019-06-18 Test Time: 21:09:59 Pat Name: COLUMBA SORENSEN Department: Room: Gender: M Appeals Coordinator: : 1955 Requested By: ALICIA SCOTT Order Number: [id number] Reading MD: Lucas Pate Measurements Intervals [place] Rate: 111 P: 73 [place]: 168 QRS: 87 QRSD: 78 T: 51 QT: 338 QTc: 463 Interpretive Statements SINUS TACHYCARDIA NONSPECIFIC ST-T WAVE CHANGES. Electronically Signed On 06-19-2019 11:20:24 CDT by Lucas Pate
[2019-06-18 23:50] LABS: CALCIUM 9.1 mg/dL (8.5-10.1); POTASSIUM 3.7 mmol/L (3.5-5.1)
[2019-06-19 00:04] LABS: ALBUMIN 3.3 g/dL (3.4-5.0); DIRECT BILIRUBIN 0.1 mg/dL (0.0-0.2); MAGNESIUM 2.3 mg/dL (1.8-2.4); TOTAL BILIRUBIN 0.3 mg/dL (0.2-1.0); TOTAL PROTEIN 7.9 g/dL (6.4-8.2)
--- NOTE | 2019-06-19 05:59 | EKG ---
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
[2019-06-19 14:03] LABS: THYROID STIM HORMONE (TSH) 0.951 uIU/mL (0.358-3.740)
== END 2019-06-19 03:15 | disposition home or self-care (01) ==
LOC: ER 20:32
DX: R07.89 Other chest pain (principal); B34.9 Viral infection, unspecified; U07.1 COVID-19; R06.02 Shortness of breath; N17.9 Acute kidney failure, unspecified; F41.9 Anxiety disorder, unspecified; I10 Essential (primary) hypertension; I25.10 Atherosclerotic heart disease of native coronary artery without angina pectoris; F10.129 Alcohol abuse with intoxication, unspecified; F17.210 Nicotine dependence, cigarettes, uncomplicated; Z59.0 Homelessness; Z90.89 Acquired absence of other organs; Y90.9 Presence of alcohol in blood, level not specified
CPT/HCPCS: 36415; 71045; 80048; 80061; 80076; 82550; 83690; 83735; 83880; 84443; 84484; 85025; 85379; 85610; 85730; 93005; 94640; 99285; J7120